=== PATIENT | female | born 1990 | race Caucasian/White ===

== ENCOUNTER 2019-07-18 17:52 | Emergency (ER) | payer OTHER, SELFPAY ==
[2019-07-18 18:01] VITALS: BP 113/76; PULSE 61; RESP 12; TEMP 36.5; O2SAT 100
--- NOTE | 2019-07-18 18:07 | DI.RAD.S_ITS ---
PROCEDURE: XR ANKLE RT MIN 3V INDICATIONS: rolled right ankle going down stairs TECHNIQUE: 3 views of the ankle were acquired. COMPARISON: None. FINDINGS: Bones: No fractures or dislocations. Ankle mortise is normally aligned. No suspicious bony lesions. Soft tissues: No tibiotalar joint effusion. Achilles tendon appears normal. IMPRESSION: No trauma. Dictated by: Alexi Pena M.D. on 07/18/2019 at 18:34 Approved by: Alexi Pena M.D. on 07/18/2019 at 18:34
[2019-07-18] MEDS: KETOROLAC 60 MG/2 ML VIAL IM (20:07)
[2019-07-18 20:41] VITALS: BP 112/70; PULSE 56; RESP 18; O2SAT 99
--- NOTE | 2019-07-18 20:41 | ED.LOWEXIN ---
HPI - Extremity Injury (Lower) <MARYAN Carrillo - Last Filed: 07/18/19 20:45> General Chief Complaint: Extremity Injury, Lower Stated Complaint: Slipped down stairs, hurt ankle Time Seen by Provider: 07/18/19 19:44 Source: patient and family Mode of arrival: Family Vehicle Limitations: no limitations History of Present Illness HPI Narrative: The patient is a 29-year-old female non smoker who denies medical history presents with a chief complaint of right ankle pain as she rolled it while going down 2 stairs. She denies any other injury. She has not taken anything for pain. She denies any previous substantial injuries to that ankle. She has not applied ice. Related Data Home Medications Medication Instructions Recorded Confirmed omega 9-rqo-qop-fish oil 1,000 mg cap PO cap 06/04/18 06/04/18 (120 mg-180 mg) capsule prenat.vits,forest,wux-dwpk-lrtwk 1 tab PO DAILY 06/04/18 06/04/18 Previous Rx's Medication Instructions Recorded fluconazole 150 mg tablet 150 mg PO ONCE #1 tab 06/04/18 ketorolac 10 mg PO TID PRN #15 tab 07/18/19 Allergies Allergy/AdvReac Type Severity Reaction Status Date / Time moxifloxacin [From Avelox] Allergy Severe Anaphylaxis Verified 07/18/19 18:07 Review of Systems <MARYAN Carrillo - Last Filed: 07/18/19 20:45> Review of Systems Narrative: GENERAL: Denies chills, fatigue, malaise, fever, sweats. HEENT: Denies sinus pain, ear pain, sore throat, difficulty swallowing, dizziness. RESPIRATORY: Denies dyspnea, cough, wheezing, hemoptysis, sputum. CARDIOVASCULAR: Denies chest pain, palpitations, orthopnea, edema, GASTROINTESTINAL: Denies nausea, vomiting, abdominal pain, diarrhea, constipation, melena. : Denies dysuria, frequency, incontinence, hematuria, urinary retention. MUSCULOSKELETAL: See HPI SKIN: Denies rash, skin lesions, or other NEUROLOGIC: Denies weakness, headache, numbness, change in speech, confusion, seizures, incoordination. PSYCHIATRIC: No concerning psychosocial issues. 12 point review of systems is negative except for those stated above Patient History <MARYAN Carrillo - Last Filed: 07/18/19 20:45> Social History Smoking Status: Never smoker alcohol intake frequency: a few times a week Substance Use Type: does not use Exam <BEVERLY Carrillo - Last Filed: 07/18/19 20:45> Narrative Exam Narrative: GENERAL: This is a well-nourished, well-developed patient, in no acute distress HEAD: Atraumatic. Normocephalic. No temporal or scalp tenderness. EYES: Pupils equal round and reactive. Extraocular motions intact. No scleral icterus. No injection or drainage. ENT: Nose without bleeding, purulent drainage or septal hematoma. Throat without erythema, tonsillar hypertrophy or exudate. Uvula midline. Airway patent. NECK: Trachea midline. No JVD or lymphadenopathy. Supple, nontender, no meningeal signs. CARDIOVASCULAR: Regular rate and rhythm RESPIRATORY: No cough. No increased respiratory effort. No accessory muscle use. EXTREMITIES: General pain to palpation right ankle. Able to flex and extend slightly, capillary refill less than 2 seconds all toes right foot. Positive pedal pulses right foot. Pain to palpation lateral malleolus. Swelling noted lateral malleolus. BACK: Nontender without deformity or crepitance. No flank tenderness. NEURO: AOx3. SKIN: No rash or erythema on visible skin. Ecchymosis noted to the lateral aspect of right ankle. Initial Vital Signs Initial Vital Signs: Vital Signs Temperature 97.7 F 07/18/19 18:01 Pulse Rate 61 07/18/19 18:01 Respiratory Rate 12 07/18/19 18:01 Blood Pressure 113/76 07/18/19 18:01 Pulse Oximetry 100 07/18/19 18:01 <Lai Christy DO - Last Filed: 07/18/19 21:44> Initial Vital Signs Initial Vital Signs: Vital Signs Temperature 97.7 F 07/18/19 18:01 Pulse Rate 61 07/18/19 18:01 Respiratory Rate 12 07/18/19 18:01 Blood Pressure 113/76 07/18/19 18:01 Pulse Oximetry 100 07/18/19 18:01 Procedures <BEVERLY Carrillo - Last Filed: 07/18/19 20:45> Orthopedic Splinting/Casting Injury #1: Side: right Lower Extremity Injury Location: ankle Lower Extremity Immobilizer: AirCast and Johnny wrap Other Orthopedic Equipment: crutches Post splinting neuro exam: intact Post splinting vascular exam: intact Placed by: Nursing Course <BEVERLY Carrillo - Last Filed: 07/18/19 20:45> Orders Ordered: ED Orders 07/18/19 18:07 XR ankle RT min 3V Stat Discontinued Medications Ketorolac Tromethamine (Toradol) 60 mg IM NOW ONE Stop: 07/18/19 20:00 Last Admin: 07/18/19 20:07 Dose: 60 mg Documented by: SONIA Vital Signs Vital signs: Vital Signs - 8 hr 07/18/19 18:01 07/18/19 20:41 Temperature 97.7 F Pulse Rate 61 56 L Respiratory Rate 12 18 Blood Pressure 113/76 112/70 Pulse Oximetry 100 99 <Lai Christy DO - Last Filed: 07/18/19 21:44> Orders Ordered: ED Orders 07/18/19 18:07 XR ankle RT min 3V Stat Discontinued Medications Ketorolac Tromethamine (Toradol) 60 mg IM NOW ONE Stop: 07/18/19 20:00 Last Admin: 07/18/19 20:07 Dose: 60 mg Documented by: SONIA Vital Signs Vital signs: Vital Signs - 8 hr 07/18/19 18:01 07/18/19 20:41 Temperature 97.7 F Pulse Rate 61 56 L Respiratory Rate 12 18 Blood Pressure 113/76 112/70 Pulse Oximetry 100 99 MDM - Extremity Injury (Lower) <BEVERLY Carrillo - Last Filed: 07/18/19 20:45> Imaging Data Ankle x-ray: Radiologist's impression: [address] [address] XRay Report Signed Patient: Madeleine Vaughan CMR#: [id number] : 1990Acct:[id number] Age/Sex: 29 / FDate of Service: 07/18/19 Loc: ED Accession Number: [id number] Procedure: XR ankle RT min 3V Ordering Provider: Alissa Santiago D.O. PROCEDURE: XR ANKLE RT MIN 3V INDICATIONS: rolled right ankle going down stairs TECHNIQUE: 3 views of the ankle were acquired. COMPARISON: None. FINDINGS: Bones: No fractures or dislocations. Ankle mortise is normally aligned. No suspicious bony lesions. Soft tissues: No tibiotalar joint effusion. Achilles tendon appears normal. IMPRESSION: No trauma. Dictated by: Alexi Pena M.D. on 07/18/2019 at 18:34 Approved by: Alexi Pena M.D. on 07/18/2019 at 18:34 MDM Narrative Medical decision making narrative: The patient is a 29-year-old female who presents for chief complaint of ankle pain after slipping down stairs earlier today. She has no fracture on x-ray, neurovascularly intact. She is placed in an air splint and given crutches given her pain level. She was given Toradol in the emergency department, I center prescription as she denies possibility of and states she is menstruating at this point time. I discussed not combining with any other anti-inflammatories. I encouraged her to follow up with primary care provider in the next few days. Patient has no questions or concerns upon discharge and states understanding of return precautions as well as follow-up care. Discharge Plan Departure Patient Disposition: Home Clinical Impression: Acute ankle pain Qualifiers: Laterality: right Qualified Code(s): M25.571 - Pain in right ankle and joints of right foot Discharge Date/Time: 07/18/19 20:42 Instructions: How to Use Crutches, DI for Ankle Sprain, How To Perform RICE (Rest, Ice, Compress, Elevate), DI for Ankle Pain Activity Restrictions/Additional Instructions: I have given you a prescription of Toradol. This is an NSAID. Do not combine it with other NSAIDs such as Aleve or ibuprofen. I suggest taking it with some food, as it can irritate your stomach. This prescription was sent to [facility]. As I discussed, your x-ray shows no acute fracture. This does not rule out a soft tissue injury such as a ligament or tendon injury. It is important that you follow up with primary care provider, especially if worsening or no improvement. There can be fractures that did not show up on initial x-ray. Please come back to the emergency department for any acute concerns. Please follow up with primary care provider. Prescriptions: New ketorolac 10 mg tablet 10 mg PO TID PRN (Reason: pain) Qty: 15 RF: 0 No Action prenat.vits,forest,gpk-uvbq-acqfq [ Vitamin] tablet 1 tab PO DAILY RF: 0 omega 1-wbg-hdw-fish oil [Fish Oil] 1,000 mg (120 mg-180 mg) capsule PO RF: 0 fluconazole 150 mg tablet 150 mg PO ONCE Qty: 1 RF: 0 Referrals: Ashley Eduardo ARNP [Primary Care Provider] - <Lai Christy DO - Last Filed: 07/18/19 21:44> Sign Out Provider Sign Out Attestation: Dr Christy Co-Sign Statement: I was available for consultation during this patient's emergency department visit. This chart is signed by myself for administrative purposes only. I did not have direct contact with this patient during this visit. They were seen independently by the APC.
== END 2019-07-18 20:42 | disposition home or self-care (01) ==
PROVIDERS: Emergency Provider Nurse Practitioner Family; PCP Nurse Practitioner Family
DX: M25.571 Pain in right ankle and joints of right foot (principal); W10.9XXA Fall (on) (from) unspecified stairs and steps, initial encounter
CPT/HCPCS: 73610; 96372; 99283; J1885

== ENCOUNTER 2023-05-22 14:34 | Emergency (ER) | payer OTHER, SELFPAY ==
[2023-05-22 14:50] VITALS: BP 130/75; PULSE 96; RESP 17; TEMP 37.2; O2SAT 98; BMI 22.4
--- NOTE | 2023-05-22 14:55 | DI.US.S_ITS ---
PROCEDURE: US OB <= 14 WEEKS FETUS INDICATIONS: PELVIC PAIN OUTSIDE/PRIOR DATING DATA: Last menstrual period (LMP): 04/02/2023. LMP-based estimated date of delivery (ADAN): 01/07/2024. First dating scan (date and location): 05/22/2023. Estimated date of delivery (ADAN) from first dating scan: 01/03/2024. The calculations are made using the working ADAN of 01/07/2024. TECHNIQUE: Real-time scanning was performed of the fetus and maternal pelvic organs, with image documentation. Endovaginal scanning was also performed to better visualize the fetus and maternal ovaries. COMPARISON: None. FINDINGS: Embryo: Crescent-rump length measures 1.4 cm corresponding with 7 week 5 day gestation. A normal yolk sac identified Heart rate: 169 beats per minute. Small perigestational bleed measures 1.1 x 1.3 x 0.3 cm Maternal organs: Left-sided corpus luteum cyst IMPRESSION: Single live intrauterine consistent with 7 week 5 day gestation. Small perigestational bleed 1.3 x 0.3 cm Approved by: Melecio Lawrence M.D. on 05/22/2023 at 16:03
[2023-05-22 15:47] LABS: Add Manual Diff / Slide Review NO; Basophils Absolute Auto 0 /uL (0-100); Basophils Percent Auto 0.4 % (0-2); Eosinophils Absolute Auto 0 /uL (0-450); Hematocrit 38.6 % (36-46); Hemoglobin 13.3 g/dL (12.0-16.0); Lymphocytes Absolute Auto 300 /uL (1100-4500); Lymphocytes Percent Auto 6.4 % (25-40); Mean Corpuscular HGB Conc 34.4 % (30-36); Mean Corpuscular Hemoglobin 31.6 PG (26-34); Mean Corpuscular Volume 91.9 fL (80-100); Monocytes Absolute Auto 500 /uL (0-900); Monocytes Percent Auto 11.3 % (3-14); Neutrophils Absolute Auto 3800 /uL (1500-7000); Neutrophils Percent Auto 81.9 % (50-75); Platelet Count 168 X10^3/uL (150-400); Red Blood Cell Count 4.21 X10^6/uL (4.0-5.2); Red Cell Distribution Width 12.5 % (11.6-14.8); White Blood Cell Count 4.7 X10^3/uL (4.5-11.0)
[2023-05-22 15:52] LABS: Alanine Aminotransferase 19 IU/L (<35); Albumin 4.4 g/dL (3.5-5.0); Albumin Globulin Ratio 1.5 (1.0-2.8); Alkaline Phosphatase 36 U/L (38-126); Aspartate Aminotransferase 18 IU/L (14-36); BUN Creatinine Ratio 8.7 (6-22); Bilirubin Total 0.3 mg/dL (0.2-1.3); Blood Urea Nitrogen 4 mg/dL (7-17); Calcium 9.3 mg/dL (8.4-10.2); Carbon Dioxide 22 mmol/L (22-32); Chloride 102 mmol/L (98-107); Estimated Glomerular Filt Rate > 60 mL/min (>60); Glucose 93 mg/dL (70-100); HEMOLYSIS < 15 (0-50); Potassium 3.7 mmol/L (3.4-5.1); Sodium 132 mmol/L (137-145); Total Protein 7.4 g/dL (6.3-8.2)
[2023-05-22 16:36] LABS: HCG Quantitative /Beta subunit 127180 mIU/mL
--- NOTE | 2023-05-22 18:36 | ED.ABDPAIN ---
HPI - Abdominal Pain <Tomi Dias PA-C - Last Filed: 05/22/23 18:45> General Chief Complaint: Abdominal Pain Stated Complaint: 7 weeks cramping pelvic pain Time Seen by Provider: 05/22/23 16:40 Source: patient Mode of arrival: Ambulatory History of Present Illness HPI narrative: 33-year-old female with no reported past medical history presents to the ED with left-sided abdominal pain for 2 days. Patient states she is 7 weeks , LMP 03/31/2023. Patient denies vaginal bleeding, fever, chills, chest pain, shortness of breath, dysuria, lightheadedness, dizziness, syncope. Patient states that she attended her brother's wedding over the weekend, got back yesterday and felt like she was coming down with something. She complains of a headache, sore throat, cough, fatigue. Patient states that her left-sided abdominal pain which is in the lower abdomen started yesterday and feels worse today. Patient has not yet seen an OBGYN, is scheduled to see 1 in a few weeks. This is patient's 1st . Related Data Home Medications Medication Instructions Recorded Confirmed prenat.vits,forest,tjk-whrq-upurz 1 tab PO DAILY 06/04/18 05/22/23 ( Vitamin tablet) Allergies Allergy/AdvReac Type Severity Reaction Status Date / Time moxifloxacin [From Avelox] Allergy Severe Anaphylaxis Verified 05/22/23 14:54 Review of Systems <Tomi Dias PA-C - Last Filed: 05/22/23 18:45> Review of Systems ROS Unobtainable: All systems reviewed & are unremarkable except as noted in HPI and below Constitutional Constitutional: Denies chills, Reports fatigue, Denies fever(s), Denies frequent falls, Reports headache(s), Denies lethargy and Denies weakness Eyes Eyes: Denies change in vision, Denies eye discharge, Denies irritation and Denies loss of vision ENT Ears, Nose, Mouth, and Throat: Denies change in voice, Denies dizziness, Reports headache(s), Denies neck pain, Denies sore throat and Denies throat swelling Cardiovascular Cardiovascular: Denies chest pain, Denies irregular heart rhythm, Denies lightheadedness, Denies palpitations, Denies dyspnea, Denies dyspnea on exertion and Denies orthopnea Respiratory Respiratory: Reports cough, Denies dyspnea, Denies dyspnea on exertion and Denies wheezing Gastrointestinal Gastrointestinal: Reports abdominal pain, Denies change in bowel habits, Denies diarrhea, Denies nausea and Denies vomiting Genitourinary Genitourinary: Denies hematuria, Denies flank pain, Denies urinary incontinence and Denies urinary urgency Musculoskeletal Musculoskeletal: Denies back pain, Denies muscle weakness, Denies neck pain, Denies numbness and Denies tingling Integumentary/Breasts Skin/Breast: Denies pruritus, Denies erythema, Denies rash and Denies wounds Neurologic Neurologic: Denies behavioral changes, Denies confusion, Denies dizziness, Denies frequent falls, Reports headache(s), Denies loss of vision, Denies numbness, Denies tingling and Denies weakness Psychiatric Psychiatric: Denies anxiety, Denies behavioral changes, Denies confusion, Denies depression, Denies homicidal ideation and Denies suicidal ideation Endocrine Endocrine: Reports fatigue, Denies flushing and Denies palpitations Hematologic/Lymphatic Hematologic/Lymphatic: Denies easy bruising Allergic/Immunologic Allergic/Immunologic: Denies urticaria, Denies throat swelling and Denies wheezing Patient History <Tomi Dias PA-C - Last Filed: 05/22/23 18:45> Social History Smoking Status: Never smoker Smoking Status: Never smoker alcohol intake frequency: a few times a week Substance Use Type: does not use Exam <Tomi Dias PA-C - Last Filed: 05/22/23 18:45> Narrative Exam Narrative: Const General:?cooperative, healthy appearing and comfortable [facility] Head:?normal to inspection Ears:?hearing grossly normal bilaterally Nose:?external nose normal Face and sinus:?normal facial exam and sinuses nontender Mouth:?oral mucosae normal Throat:?posterior oropharynx normal Eyes General:?appearance normal, both eyes and all related structures Neck Neck:?normal visual inspection and no lymphadenopathy noted Resp Effort & Inspection:?normal respiratory effort Auscultation:?clear to auscultation bilaterally Cardio Rate:?regular rate Rhythm:?regular rhythm GI Abdomen is soft, nontender to palpation. Mildly distended, consistent with the 7 week Neuro General:?patient alert, patient awake and patient oriented x3 Initial Vital Signs Initial Vital Signs: Vital Signs Temperature 98.9 F 05/22/23 14:50 Pulse Rate 96 H 05/22/23 14:50 Respiratory Rate 17 05/22/23 14:50 Blood Pressure 130/75 05/22/23 14:50 Pulse Oximetry 98 05/22/23 14:50 Oxygen Delivery Method Room Air 05/22/23 14:50 <Lai Christy DO - Last Filed: 05/28/23 07:11> Initial Vital Signs Initial Vital Signs: Vital Signs Temperature 98.9 F 05/22/23 14:50 Pulse Rate 96 H 05/22/23 14:50 Respiratory Rate 17 05/22/23 14:50 Blood Pressure 130/75 05/22/23 14:50 Pulse Oximetry 98 05/22/23 14:50 Oxygen Delivery Method Room Air 05/22/23 14:50 Course <TIFFANY Antonio Last Filed: 05/22/23 18:45> Orders Ordered: ED Orders 05/22/23 14:55 US OB <= 14 weeks fetus Stat 05/22/23 15:34 ABO RH Type Stat Complete Blood Count AUTO DIFF Stat Comprehensive Metabolic Panel Stat HCG Quantitative /Beta subunit Stat Vital Signs Vital signs: Vital Signs - 8 hr 05/22/23 14:50 Temperature 98.9 F Pulse Rate 96 H Respiratory Rate 17 Blood Pressure 130/75 Pulse Oximetry 98 Oxygen Delivery Method Room Air <DO Brent Stringer Last Filed: 05/28/23 07:11> Orders Ordered: ED Orders 05/22/23 14:55 US OB <= 14 weeks fetus Stat 05/22/23 15:34 ABO RH Type Stat Complete Blood Count AUTO DIFF Stat Comprehensive Metabolic Panel Stat HCG Quantitative /Beta subunit Stat Vital Signs Vital signs: Vital Signs - 8 hr 05/22/23 14:50 Temperature 98.9 F Pulse Rate 96 H Respiratory Rate 17 Blood Pressure 130/75 Pulse Oximetry 98 Oxygen Delivery Method Room Air MDM - Abdominal Pain <TIFFANY Antonio Last Filed: 05/22/23 18:45> Lab Data 05/22/23 15:34 05/22/23 15:34 Labs: Lab Results 05/22/23 05/22/23 05/22/23 Range/Units 15:34 15:34 15:34 WBC 4.7 (4.5-11.0) X10^3/uL RBC 4.21 (4.0-5.2) X10^6/uL Hgb 13.3 (12.0-16.0) g/dL Hct 38.6 (36-46) % MCV 91.9 (80-100) fL MCH 31.6 (26-34) PG MCHC 34.4 (30-36) % RDW 12.5 (11.6-14.8) % Plt Count 168 (150-400) X10^3/uL Neut % (Auto) 81.9 H (50-75) % Lymph % (Auto) 6.4 L (25-40) % [place] % (Auto) 11.3 (3-14) % Eos % (Auto) 0.0 L (2-4) % Baso % (Auto) 0.4 (0-2) % Neut # (Auto) 3800 (9547-8732) /uL Lymph # (Auto) 300 L (7505-5338) /uL [place] # (Auto) 500 (0-900) /uL Eos # (Auto) 0 (0-450) /uL Baso # (Auto) 0 (0-100) /uL Sodium 132 L (137-145) mmol/L Potassium 3.7 (3.4-5.1) mmol/L Chloride 102 (98-107) mmol/L Carbon Dioxide 22 (22-32) mmol/L BUN 4 L (7-17) mg/dL Creatinine 0.46 L (0.52-1.04) mg/dL Estimated GFR > 60 (>60) mL/min BUN/Creatinine Ratio 8.7 (6-22) Glucose 93 (70-100) mg/dL Calcium 9.3 (8.4-10.2) mg/dL Total Bilirubin 0.3 (0.2-1.3) mg/dL AST 18 (14-36) IU/L ALT 19 (<35) IU/L Alkaline Phosphatase 36 L (38-126) U/L Total Protein 7.4 (6.3-8.2) g/dL Albumin 4.4 (3.5-5.0) g/dL Globulin 3.0 (1.7-4.1) g/dL Albumin/Globulin Ratio 1.5 (1.0-2.8) HCG, Quant 491234 mIU/mL Blood Type A Positive Point of care testing: Urine Dip Bedside Urine Glucose Negative Bedside Urine Bilirubin - Negative Bedside Urine Ketone +/- 5 Urine Specific [place] 1.010 Bedside Urine Occult Blood - Negative Bedside Urine pH 7.5 Bedside Urine Protein +/- 15 Bedside Urine Urobilinogen - Negative Bedside Urine Nitrite - Negative Bedside Urine Leukocytes - Negative Esterase MDM Narrative Medical decision making narrative: 33-year-old female with no reported past medical history presents to the ED with left-sided abdominal pain for 2 days. Concern for threatened miscarriage versus round ligament pain versus other intra-abdominal pathology versus ectopic versus other. Obtained labs, hCG, pelvic ultrasound, type and screen. Patient is blood type A positive. HCG is [id number], which is consistent with a 7 week . Pelvic ultrasound shows a single live intrauterine gestation dated at approximately 7 weeks and 5 days. There is also a small perigestational bleed measuring 1.1 by 1.3 x 0.3 cm. Discussed findings with patient. Discussed that her symptoms could be from ligament pain versus a threatened miscarriage. Explained to patient that perigestational bleeds can sometimes lead to miscarriages but not always. Recommend follow-up with OBGYN as soon as possible to continue to monitor the . Also discussed the possibility that patient has a viral URI that is causing her symptoms such as cough and headache. Recommend Tylenol for symptoms. Recommend plenty of hydration. ED return precautions were discussed with patient. Patient verbalized understanding. Medical records reviewed: Yes <Lai Christy, - Last Filed: 05/28/23 07:11> Lab Data Labs: Lab Results 05/22/23 05/22/23 05/22/23 Range/Units 15:34 15:34 15:34 WBC 4.7 (4.5-11.0) X10^3/uL RBC 4.21 (4.0-5.2) X10^6/uL Hgb 13.3 (12.0-16.0) g/dL Hct 38.6 (36-46) % MCV 91.9 (80-100) fL MCH 31.6 (26-34) PG MCHC 34.4 (30-36) % RDW 12.5 (11.6-14.8) % Plt Count 168 (150-400) X10^3/uL Neut % (Auto) 81.9 H (50-75) % Lymph % (Auto) 6.4 L (25-40) % [place] % (Auto) 11.3 (3-14) % Eos % (Auto) 0.0 L (2-4) % Baso % (Auto) 0.4 (0-2) % Neut # (Auto) 3800 (3630-3062) /uL Lymph # (Auto) 300 L (9401-7536) /uL [place] # (Auto) 500 (0-900) /uL Eos # (Auto) 0 (0-450) /uL Baso # (Auto) 0 (0-100) /uL Sodium 132 L (137-145) mmol/L Potassium 3.7 (3.4-5.1) mmol/L Chloride 102 (98-107) mmol/L Carbon Dioxide 22 (22-32) mmol/L BUN 4 L (7-17) mg/dL Creatinine 0.46 L (0.52-1.04) mg/dL Estimated GFR > 60 (>60) mL/min BUN/Creatinine Ratio 8.7 (6-22) Glucose 93 (70-100) mg/dL Calcium 9.3 (8.4-10.2) mg/dL Total Bilirubin 0.3 (0.2-1.3) mg/dL AST 18 (14-36) IU/L ALT 19 (<35) IU/L Alkaline Phosphatase 36 L (38-126) U/L Total Protein 7.4 (6.3-8.2) g/dL Albumin 4.4 (3.5-5.0) g/dL Globulin 3.0 (1.7-4.1) g/dL Albumin/Globulin Ratio 1.5 (1.0-2.8) HCG, Quant 995242 mIU/mL Blood Type A Positive Point of care testing: Urine Dip Bedside Urine Glucose Negative Bedside Urine Bilirubin - Negative Bedside Urine Ketone +/- 5 Urine Specific [place] 1.010 Bedside Urine Occult Blood - Negative Bedside Urine pH 7.5 Bedside Urine Protein +/- 15 Bedside Urine Urobilinogen - Negative Bedside Urine Nitrite - Negative Bedside Urine Leukocytes - Negative Esterase Discharge Plan Departure Patient Disposition: Home Clinical Impression: Abdominal pain Instructions: DI for Abdominal Pain-Adult Activity Restrictions/Additional Instructions: You were evaluated in the ED today for abdominal pain during . Your ultrasound does show a single live intrauterine consistent with 7 week 5 day gestation. There is a small perigestational bleed. Your hCG today was consistent with a 7 week and is at [id number]. Please follow-up with your OBGYN for continued monitoring of the . It also appears you might have a viral infection that is causing you to feel a little under the weather with a cough and headache. You may take Tylenol for it. Please return to the ED if you have worsening symptoms, vaginal bleeding. Prescriptions: No Action prenat.vits,forest,tyl-wwur-sqthq [ Vitamin] tablet 1 tab PO DAILY Referrals: Ashley Naylor ARNP [Primary Care Provider] - Stand Alone Forms: Patient Portal/API <Lai Christy DO - Last Filed: 05/28/23 07:11> Cosign ED Attending Cosignature Attestation: Dr Christy Co-Sign Statement: I was available for consultation during this patient's emergency department visit. This chart is signed by myself for administrative purposes only. I did not have direct contact with this patient during this visit. They were seen independently by the APC.
== END 2023-05-22 17:34 | disposition home or self-care (01) ==
PROVIDERS: Emergency Medicine; Emergency Provider Student in an Organized Health Care Education/Training Program; PCP Nurse Practitioner Family
DX: O26.891 Other specified pregnancy related conditions, first trimester (principal); R10.9 Unspecified abdominal pain; Z3A.01 Less than 8 weeks gestation of pregnancy
CPT/HCPCS: 76801; 76817; 80053; 81003; 84702; 85025; 86900; 86901; 99283

== ENCOUNTER → 2023-06-11 11:42 | Outpatient (CLI) | payer OTHER, SELFPAY ==
[2023-06-11 12:14] LABS: Miscellaneous to LabCorp NATERA
[2023-06-11 12:47] LABS: Add Manual Diff / Slide Review NO; Basophils Absolute Auto 0 /uL (0-100); Basophils Percent Auto 0.4 % (0-2); Eosinophils Absolute Auto 0 /uL (0-450); Eosinophils Percent Auto 0.4 % (2-4); Hematocrit 37.2 % (36-46); Hemoglobin 12.9 g/dL (12.0-16.0); Lymphocytes Absolute Auto 1400 /uL (1100-4500); Lymphocytes Percent Auto 19.9 % (25-40); Mean Corpuscular HGB Conc 34.8 % (30-36); Mean Corpuscular Hemoglobin 31.5 PG (26-34); Mean Corpuscular Volume 90.6 fL (80-100); Monocytes Absolute Auto 500 /uL (0-900); Monocytes Percent Auto 6.9 % (3-14); Neutrophils Absolute Auto 5000 /uL (1500-7000); Neutrophils Percent Auto 72.4 % (50-75); Platelet Count 223 X10^3/uL (150-400); Red Blood Cell Count 4.11 X10^6/uL (4.0-5.2); Red Cell Distribution Width 12.4 % (11.6-14.8); White Blood Cell Count 6.9 X10^3/uL (4.5-11.0)
[2023-06-11 15:21] LABS: Hepatitis B Surface Antigen NEGATIVE s/c (NEGATIVE); Rubella Antibody IgG 70.3 IU/mL (>15)
[2023-06-11 15:36] LABS: HIV 1 & 2 Ab/Ag 4th Gen Combo NEGATIVE (NEGATIVE); Hep C Virus Ab w/Reflex Quant NEGATIVE s/c (NEGATIVE)
[2023-06-12 08:26] LABS: Varicella IgG Antibody 2098 index (Immune >165)
[2023-06-13 03:15] LABS: RPR Screen Non Reactive (Non Reactive)
== END ==
PROVIDERS: Specialist; Referring Provider Obstetrics & Gynecology; Visit Provider Obstetrics & Gynecology
DX: O09.511 Supervision of elderly primigravida, first trimester (principal); Z3A.10 10 weeks gestation of pregnancy
CPT/HCPCS: 36415; 80055; 86787; 86803; 86850; 86900; 86901; 87086; 87389

== ENCOUNTER → 2023-08-10 11:43 | Outpatient (CLI) | payer OTHER, SELFPAY ==
[2023-08-11 14:44] LABS: Candida species Negative (Negative); Gardnerella vaginalis Negative (Negative); Trichomoas vaginalis Negative (Negative)
== END ==
PROVIDERS: PCP Family Medicine; Visit Provider Student in an Organized Health Care Education/Training Program
DX: N89.8 Other specified noninflammatory disorders of vagina (principal)
CPT/HCPCS: 87480; 87510; 87660

== ENCOUNTER → 2023-08-10 11:44 | Outpatient (CLI) | payer OTHER, SELFPAY ==
[2023-08-13 14:59] LABS: AFP Value 53.8 ng/mL (.); Gest Age on Col Date 18.6 weeks (.); Insulin Dep Diabetes No (.); OSBR Risk 1IN 6916 (.); Results Report (.); Test Results *Screen Negative* (.)
== END ==
PROVIDERS: PCP Family Medicine; Referring Provider Student in an Organized Health Care Education/Training Program; Visit Provider Student in an Organized Health Care Education/Training Program
DX: O99.891 Other specified diseases and conditions complicating pregnancy (principal); N89.8 Other specified noninflammatory disorders of vagina; Z3A.18 18 weeks gestation of pregnancy
CPT/HCPCS: 36415; 82105; 87480; 87510; 87660

== ENCOUNTER → 2023-08-22 12:17 | Outpatient (CLI) | payer OTHER, SELFPAY ==
--- NOTE | 2023-08-22 12:18 | DI.US.S_ITS ---
PROCEDURE: US OB >= 14 WEEKS FETUS INDICATIONS: 20 week anatomy scan OUTSIDE/PRIOR DATING DATA: Last menstrual period (LMP): 04/02/2023. LMP-based estimated date of delivery (ADAN): 01/07/2024. First dating scan (date and location): 05/22/2023. Estimated date of delivery (ADAN) from first dating scan: 01/03/2024. The calculations are made using the working ADAN of 01/07/2024. TECHNIQUE: Real-time scanning was performed of the fetus, with image documentation and biometric measurements. Endovaginal scanning: None COMPARISON: [facility], US, OB >= 14 WEEKS FETUS, 07/10/2023, 12:08. FINDINGS: General: A single living intrauterine gestation is present. Presentation: Vertex. Placenta: Placental position is posterior , without previa. Amniotic fluid index: 17.1 cm, normal range is 5-24 cm. Single deepest vertical pocket is 5.6 cm. heart rate: 152 beats per minute. Maternal cervical canal: 3.3 cm long. Normal lower limit is 2.5 cm. biometrics: Biparietal diameter: 5.1 cm, 21 week 3 day Head circumference: 18.3 cm, 20 week 5 day Abdominal circumference: 15.3 cm, 20 week 4 day Femur length: 3.4 cm, 20 week 5 day Clinically estimated gestational age: 20 week 2 day Composite gestational age from present scan: 20 week 6 day Estimated weight and percentile: 3 no 69 g, 67 percentile Anatomic survey: Neuro: Ventricles are non-dilated at less than 10 mm. Cisterna magna is normal at 3-11 mm. Cerebellum is normal in size and morphology. Nuchal skin fold: Normal at less than 6 mm between 14-21 weeks gestational age. Face: Nose and lips, facial profile are normal. Spine: No evidence for spina bifida. Heart: 4-chambered heart is present, with normal ventricular outflow tracts. Diaphragm: Diaphragm is intact. Stomach: Left-sided stomach is present. Kidneys: No hydronephrosis. Normal is less than 5 mm in 2nd trimester, less than 7 mm in 3rd trimester. Cord: 3-vessel cord has orthotopic insertion. Bladder: Normal in size. Extremities: All 4 extremities identified. IMPRESSION: Single live intrauterine consistent with 20 week 6 day gestation by current ultrasound. Normal anatomic survey Approved by: Melecio Lawrence M.D. on 08/22/2023 at 18:20
== END ==
PROVIDERS: PCP Family Medicine; Referring Provider Obstetrics & Gynecology; Visit Provider Obstetrics & Gynecology
DX: Z34.92 Encounter for supervision of normal pregnancy, unspecified, second trimester (principal); Z3A.20 20 weeks gestation of pregnancy
CPT/HCPCS: 76811

== ENCOUNTER → 2023-10-04 09:03 | Outpatient (CLI) | payer OTHER, SELFPAY ==
[2023-10-04 11:03] LABS: Hematocrit 34.5 % (36-46); Hemoglobin 11.9 g/dL (12.0-16.0)
[2023-10-04 11:28] LABS: GTT (PREG) 1 Hour PP 50gm Dose 87 mg/dL (76-139)
== END ==
PROVIDERS: PCP Family Medicine; Referring Provider Specialist; Visit Provider Specialist
DX: Z34.82 Encounter for supervision of other normal pregnancy, second trimester (principal); Z3A.26 26 weeks gestation of pregnancy
CPT/HCPCS: 36415; 82950; 85014; 85018

== ENCOUNTER → 2023-12-14 15:52 | Outpatient (CLI) | payer OTHER, SELFPAY ==
[2023-12-15 13:19] LABS: Strep Grp B PCR POS for Grp B Strep
== END ==
PROVIDERS: PCP Family Medicine; Visit Provider Specialist
DX: Z34.03 Encounter for supervision of normal first pregnancy, third trimester (principal); Z3A.36 36 weeks gestation of pregnancy
CPT/HCPCS: 87653

== ENCOUNTER 2024-01-09 00:25 | Outpatient (CLI) | payer OTHER, SELFPAY ==
[2024-01-09] MEDS: hydrOXYzine 50 MG/ML INJ IM (01:46)
[2024-01-09] MEDS: MORPHINE 10 MG/ML INJ IM (01:46)
== END 2024-01-09 01:55 | disposition home or self-care (01) ==
LOC: LABOR 00:27 → OB 01-14 07:49
PROVIDERS: PCP Family Medicine; Referring Provider Student in an Organized Health Care Education/Training Program; Visit Provider Student in an Organized Health Care Education/Training Program
DX: O47.1 False labor at or after 37 completed weeks of gestation (principal); O48.0 Post-term pregnancy; Z3A.40 40 weeks gestation of pregnancy
CPT/HCPCS: 59025; 96372; G0378; G0379; J2270; J3410

== ENCOUNTER 2024-01-09 09:48 | Inpatient (IN) | payer OTHER, SELFPAY ==
[2024-01-09] MEDS: LACTATED RINGERS 1,000 ML 100 ML IV ×2 (11:08→13:24)
[2024-01-09] MEDS: hydrOXYzine 50 MG/ML INJ 25 MG IM (11:15)
[2024-01-09] MEDS: MORPHINE 4 MG/ML INJ IV (11:15)
[2024-01-09 12:08] VITALS: BP 129/83
[2024-01-09 12:08] LABS: Add Manual Diff / Slide Review NO; Basophils Absolute Auto 100 /uL (0-100); Basophils Percent Auto 0.5 % (0-2); Eosinophils Absolute Auto 0 /uL (0-450); Eosinophils Percent Auto 0.1 % (2-4); Hematocrit 38.7 % (36-46); Lymphocytes Absolute Auto 1200 /uL (1100-4500); Lymphocytes Percent Auto 10.1 % (25-40); Mean Corpuscular HGB Conc 33.6 % (30-36); Mean Corpuscular Volume 92.3 fL (80-100); Monocytes Absolute Auto 500 /uL (0-900); Monocytes Percent Auto 4.6 % (3-14); Neutrophils Absolute Auto 10100 /uL (1500-7000); Neutrophils Percent Auto 84.7 % (50-75); Platelet Count 143 X10^3/uL (150-400); Red Blood Cell Count 4.19 X10^6/uL (4.0-5.2); Red Cell Distribution Width 13.8 % (11.6-14.8); White Blood Cell Count 11.9 X10^3/uL (4.5-11.0)
--- NOTE | 2024-01-09 13:14 | P.HPOB_ITS ---
OB HPI Date/Time Date of admission: 01/09/24 Date Patient Seen: 01/09/24 Time Patient Seen: 12:15 History of Present Condition Chief complaint: obs of labor ADAN Calculator 2 Estimated Delivery Date Method Current WG Current Estimate 01/07/24 LMP (Certain) 40w 2d Other Estimates 01/03/24 Ultrasound #1 40w 6d 01/04/24 Ultrasound #2 40w 5d Estimated Gestational Age (weeks): 40+2 : 1 Para: 0 care: good care, initiated at week # (9), number of visits (13) and pounds weight gain (26) Dating criteria OB: LMP confirmed by 1st trimester US Ultrasounds: normal 1st trimester US and normal mid trimester US Obstetrical complications: none Medical complications OB: none Indications Indication for induction OB: other (Prodromal labor) Preadmission Labs Last OB Lab Results: 2 Blood Type A Positive 01/09/24 11:05 Antibody Screen Negative 01/09/24 11:05 Hematocrit 38.7 % (36-46) 01/09/24 11:05 Hemoglobin 13.0 g/dL (12.0-16.0) 01/09/24 11:05 Hepatitis B Surface Antigen Negative s/c (NEGATIVE) 06/11/23 12 :13 Hepatitis C Antibody Negative s/c (NEGATIVE) 06/11/23 12:13 Rubella Antibody 70.3 IU/mL (>15) 06/11/23 12:13 Varicella-Zoster IgG Antibody 2098 index (Immune >165) 06/11/23 12:13 Glucose 1 Hour 87 mg/dL (76-139) 10/04/23 09:09 Group B Streptococcus (PCR) Pos for grp b strep H 12/14/23 15:5 2 -: Chlamydia screen: negative, Gonorrhea screen: negative and Urine: negative -: PAP smear: Normal Genetic Screens: Cell-free DNA: Normal (normal male) and Alpha-fetoprotein: Normal External Labs -: Urine: negative Evaluation Evaluation Baseline heart rate: 135 Variability: Moderate (11-25) monitor accelerations: Present Monitor Decelerations: Absent Contraction Frequency (minutes): 5 Uterine Contraction Intensity: Moderate Status: Category l Dilation (cm): 0 Effacement (%): 95 Dilation: Closed Effacement: >/=80% station: 0 Position of cervix: mid Consistency: soft [place] score: 8 [facility] Medical History (Updated 12/21/23 @ 16:01 by Shirley Medeiros MD) COVID-19 affecting in first trimester (~04/2023) Painful menstrual periods Seasonal allergies Migraine Chicken pox (~1991) Measles (~1989) Surgical History (Updated 06/16/23 @ 21:24 by Alicia Chavez) Anesthesia History of tonsillectomy (~1991) H/O endoscopy (~2006) History of removal of skin mole Percy teeth extracted (~2007) Family History (Updated 06/16/23 @ 21:27 by Alicia Chavez) Granddaughter Leukemia Grandfather Prostate cancer Grandfather Pneumonia Grandmother Cancer Grandmother History of heart disease Social History marital status: number of children: 0 household members: spouse lives independently: Yes caregiver/support person: No housing: house pets and animals: No education level: college (bachelor's degree) occupational status: employed (works from home) current occupational exposures/hazards: No special rosio needs: No travel history: recent ([place], [place], [place], [place]) seatbelt use: always helmet use: Yes water heater temp set < 120 deg: Yes working smoke detector in home: Yes fire extinguisher in home: Yes carbon monox detector in home: Yes firearms in home: No do you feel safe at home: Yes Smoking Status: Never smoker second hand exposure: No alcohol intake: former (1-2/week when not ) substance use type: marijuana (occasional edibles, not while /) during the past year weight has: remained stable well-balanced diet: daily or most days daily servings fruits/ve or more times/day caffeine: Yes (1 cup coffee in AM) Type(s) of exercise: walking, bicycling, weight lifting and running frequency: daily duration: 30-45 minutes/day Meds Home Medications and Allergies Home Medications Medication Instructions Recorded Confirmed Type prenat.vits,forest,rtp-pjxh-rgobf 1 tab PO DAILY 06/04/18 01/09/24 History ( Vitamin tablet) magnesium 250 mg tablet 250 mg PO DAILY PRN insomnia 05/28/23 01/09/24 History omega 6-gfd-hzr-fish oil 1,600 5 ml PO DAILY 05/28/23 01/09/24 History mg-500 mg-800 mg/5 mL oral liquid (Fish Oil) ondansetron 4 mg disintegrating 4 mg PO Q6H PRN nausea and 05/31/23 01/07/24 Rx tablet vomiting #20 tabs doxylamine succinate 25 mg tablet 25 mg PO DAILY Pregnacy nausea 06/19/23 01/09/24 History (Unisom (doxylamine)) aspirin 81 mg tablet,delayed 81 mg PO DAILY 09/10/23 01/09/24 History release RSVPreF3 antigen-AS01E 0.5 ml IM ONCE #1 ea 11/01/23 01/07/24 Rx adjuvant(PF) 120 mcg/0.5 mL IM suspension, kit Allergies Allergy/AdvReac Type Severity Reaction Status Date / Time moxifloxacin [From Avelox] Allergy Severe Anaphylaxis Verified 01/09/24 11:05 OB Exam Narrative Exam Narrative: Generally: Patient very uncomfortable with contractions, breathing through them. Having some shaking. Lungs: Clear to auscultation bilaterally Cardiovascular: Regular rate and rhythm Fundal height: 40 cm Estimated weight: 7-1/2 lb Extremities: Trace edema Objective Labs 01/09/24 11:05 Labs: Laboratory Results - last 24 hr 01/09/24 11:05 WBC 11.9 H RBC 4.19 Hgb 13.0 Hct 38.7 MCV 92.3 MCH 31.0 MCHC 33.6 RDW 13.8 Plt Count 143 L Neut % (Auto) 84.7 H Lymph % (Auto) 10.1 L [place] % (Auto) 4.6 Eos % (Auto) 0.1 L Baso % (Auto) 0.5 Neut # (Auto) 77129 H Lymph # (Auto) 1200 [place] # (Auto) 500 Eos # (Auto) 0 Baso # (Auto) 100 Blood Type A Positive Antibody Screen Negative Assessment and Plan Assessment and Plan Assessment and Plan narrative: Assessment: 33-year-old 1 para 0 at 40-,2/7 weeks gestation in prodromal labor new line not tolerating contractions well IV morphine has had no effect GBS positive Plan: Epidural GBS prophylaxis Possible placement of Damico once comfortable Expected management to spontaneous vaginal delivery Time Spent with Patient Total time spent with greater than 50% in coordination of care (as documented) at patient's floor/unit and/or counseling patient:: 15-24 minutes
[2024-01-09] MEDS: AMPICILLIN 2,000 MG in SODIUM CHLORIDE 0.9% 100 ML 200 MG IV (13:25)
--- NOTE | 2024-01-09 14:24 | PM.AN.REGBLK ---
Regional Block Pre-procedure Labs: Hct 38.7 % (36-46) 01/09/24 11:05 Plt Count 143 X10^3/uL (150-400) L 01/09/24 11:05 Medications: Current Medications Generic Name Dose Route Start Last Admin Trade Name Ama PRN Reason Stop Dose Admin Carboprost Tromethamine 250 mcg 01/09/24 10:33 Carboprost 250 Mcg/Ml Ampul IM Q90M PRN Bleeding Hydroxyzine HCl 25 mg 01/09/24 10:33 01/09/24 11:15 Hydroxyzine 50 Mg/Ml Inj IM 25 mg Q4HR PRN Administration Nausea Oxytocin/Lactated Ringer's 30 unit in 500 mls @ 200 mls/hr 01/09/24 10:33 Oxytocin Premix IV CONT PRN Bleeding Protocol Tranexamic Acid 1,000 mg/ 100 mls @ 200 mls/hr 01/09/24 10:33 Sodium Chloride IV NOW PRN Bleeding Lactated Ringer's 1,000 mls @ 100 mls/hr 01/09/24 10:45 01/09/24 13:24 Lactated Ringers IV 100 mls/hr CONT DIGNA Administration Ampicillin Sodium 1,000 mg/ 100 mls @ 200 mls/hr 01/09/24 16:45 Sodium Chloride IV Q4H DIGNA Lidocaine HCl 20 ml 01/09/24 10:33 Lidocaine 1% 20 Ml INJ INTRA-OP PRN Post Delivery Methylergonovine Maleate 0.2 mg 01/09/24 10:33 Methylergonovine 0.2 Mg Tablet PO Q6HR PRN Heavy Bleeding Methylergonovine Maleate 0.2 mg 01/09/24 10:33 Methylergonovine 0.2 Mg/Ml Vial IM NOW PRN Bleeding Misoprostol 800 mcg 01/09/24 10:33 Misoprostol 200 Mcg Tablet ND NOW PRN Bleeding Misoprostol 400 mcg 01/09/24 10:33 Misoprostol 200 Mcg Tablet SL NOW PRN Bleeding Morphine Sulfate 4 mg 01/09/24 10:33 01/09/24 11:15 Morphine 4 Mg/Ml Inj IV 4 mg Q4HR PRN Administration Pain, Severe (7-10) Naloxone HCl 0.2 mg 01/09/24 10:33 Naloxone 0.4 Mg/Ml Vial IV Q2MIN PRN Opiate Reversal Oxytocin 10 unit 01/09/24 10:33 Oxytocin 10 Unit/Ml Vial IM NOW PRN Bleeding Sodium Chloride 10 ml 01/09/24 21:00 Sodium Chloride 0.9% Flush IV BID DIGNA Sodium Chloride 10 ml 01/09/24 10:33 Sodium Chloride 0.9% Flush IV PRN PRN Flush Allergies: Allergies Allergy/AdvReac Type Severity Reaction Status Date / Time moxifloxacin [From Avelox] Allergy Severe Anaphylaxis Verified 01/09/24 11:05 Procedure Insertion date: 01/09/24 Insertion time: 12:56 Prep/Local: betadine x3 and 1% lidocaine Interspace: l3 l4 Patient position: sitting Needle: 17 gauge Tuohy Loss of resistance with: saline GIANLUCA at (cm): 6 Catheter placed at SKIN (cm): 14 Initial Medications TEST DOSE time: 13:00 BOLUS DOSE time: 13:09 BOLUS DOSE (mL): 5 BOLUS DOSE med: 0.125% bupivacaine with fentanyl 10 mcg/mL Infusion INFUSION: with fentanyl 2 mcg/mL and 0.0625% bupivacaine Initial rate (mL/hr): 10 Post-procedure Anesthesia date START: 01/09/24 Anesthesia time START: 12:50 Anesthesia date END: 01/09/24 Anesthesia time END: 15:20
[2024-01-09 14:27] LABS: Appearance Urine UA CLEAR; Bilirubin Urine UA NEGATIVE (NEGATIVE); Color Urine UA YELLOW; Glucose Urine UA NEGATIVE (Negative); Ketones Urine UA NEGATIVE (NEGATIVE); Leukocyte Esterase Urine UA NEGATIVE (NEGATIVE); Nitrite Urine UA NEGATIVE (Negative); Occult Blood Urine UA NEGATIVE (Negative); Protein Urine UA NEGATIVE (Negative); Specific Gravity Urine UA <=1.005 (1.000-1.035); Urobilinogen Urine UA 0.2 E.U./dL (0.2)
[2024-01-09 14:28] LABS: Urine Volume 10mL (spun)
[2024-01-09 14:30] LABS: Bacteria Urine None Seen; Culture Indicated Urine Cult Not Indicated; RBC Urine None Seen (0-5/HPF); Squamous Epithelial Cell Urine None Seen (0-5/HPF); WBC Urine None Seen (0-5/HPF)
--- NOTE | 2024-01-09 15:29 | PM.AN.REGBLK ---
Regional Block Pre-procedure Procedure: Continuous Lumbar Epidural for L&D Attending OB provider: Tierra Ross PMH/ROS narrative: Epidural placed earlier in the day. Patient now has pain with contractions. Nurse reports blood under dressing and leaking. Exam narrative: Blood filled dressing. When removed and inspected, catheter is at 2cm and leaking. Completed Removal and discussed replacement with the patient. She agrees to proceed. ASA Class: II Labs: Hct 38.7 % (36-46) 01/09/24 11:05 Plt Count 143 X10^3/uL (150-400) L 01/09/24 11:05 Medications: Current Medications Generic Name Dose Route Start Last Admin Trade Name Freq PRN Reason Stop Dose Admin Carboprost Tromethamine 250 mcg 01/09/24 10:33 Carboprost 250 Mcg/Ml Ampul IM Q90M PRN Bleeding Diphenhydramine HCl 25 mg 01/09/24 14:23 Diphenhydramine 50 Mg/Ml Vial IV Q10M PRN Pruritis Ephedrine Sulfate 10 mg 01/09/24 14:23 Ephedrine 50 Mg/Ml Vial IV Q5M PRN Blood pressure decrease more than 20% of baseline. Hydroxyzine HCl 25 mg 01/09/24 10:33 01/09/24 11:15 Hydroxyzine 50 Mg/Ml Inj IM 25 mg Q4HR PRN Administration Nausea Oxytocin/Lactated Ringer's 30 unit in 500 mls @ 200 mls/hr 01/09/24 10:33 Oxytocin Premix IV CONT PRN Bleeding Protocol Tranexamic Acid 1,000 mg/ 100 mls @ 200 mls/hr 01/09/24 10:33 Sodium Chloride IV NOW PRN Bleeding Lactated Ringer's 1,000 mls @ 100 mls/hr 01/09/24 10:45 01/09/24 13:24 Lactated Ringers IV 100 mls/hr CONT DIGNA Administration Ampicillin Sodium 1,000 mg/ 100 mls @ 200 mls/hr 01/09/24 16:45 Sodium Chloride IV Q4H DIGNA FENT 2MCG/ML BUPIV 0.125% EPI 200 mcg in 100 mls @ 10 mls/hr 01/09/24 14:30 Fentanyl/Bupiv/Ns 2mcg/Ml - 0.125% EPIDURAL CONT DIGNA Lidocaine HCl 20 ml 01/09/24 10:33 Lidocaine 1% 20 Ml INJ INTRA-OP PRN Post Delivery Methylergonovine Maleate 0.2 mg 01/09/24 10:33 Methylergonovine 0.2 Mg Tablet PO Q6HR PRN Heavy Bleeding Methylergonovine Maleate 0.2 mg 01/09/24 10:33 Methylergonovine 0.2 Mg/Ml Vial IM NOW PRN Bleeding Misoprostol 800 mcg 01/09/24 10:33 Misoprostol 200 Mcg Tablet OR NOW PRN Bleeding Misoprostol 400 mcg 01/09/24 10:33 Misoprostol 200 Mcg Tablet SL NOW PRN Bleeding Morphine Sulfate 4 mg 01/09/24 10:33 01/09/24 11:15 Morphine 4 Mg/Ml Inj IV 4 mg Q4HR PRN Administration Pain, Severe (7-10) Nalbuphine HCl 2.5 mg 01/09/24 14:23 Nalbuphine 20 Mg/Ml Ampul IV Q10M PRN Pruritis Naloxone HCl 0.2 mg 01/09/24 10:33 Naloxone 0.4 Mg/Ml Vial IV Q2MIN PRN Opiate Reversal Oxytocin 10 unit 01/09/24 10:33 Oxytocin 10 Unit/Ml Vial IM NOW PRN Bleeding Sodium Chloride 10 ml 01/09/24 21:00 Sodium Chloride 0.9% Flush IV BID DIGNA Sodium Chloride 10 ml 01/09/24 10:33 Sodium Chloride 0.9% Flush IV PRN PRN Flush Sodium Chloride 10 ml 01/09/24 21:00 Sodium Chloride 0.9% Flush IV BID DIGNA Sodium Chloride 10 ml 01/09/24 14:23 Sodium Chloride 0.9% Flush IV PRN PRN Flush Allergies: Allergies Allergy/AdvReac Type Severity Reaction Status Date / Time moxifloxacin [From Avelox] Allergy Severe Anaphylaxis Verified 01/09/24 11:05 Procedure Insertion date: 01/09/24 Insertion time: 15:20 Prep/Local: betadine x3 Interspace: L3-4 Patient position: sitting Needle: 17 gauge Tuohy Loss of resistance with: saline GIANLUCA at (cm): 4 Catheter placed at SKIN (cm): 12 Catheter in SPACE (cm): 8 Insertion: No CSF, No Blood, No Paresthesia with insertion, No Paresthesia with injection and No Test dose reaction Initial Medications TEST DOSE time: 15:18 TEST DOSE: 1.5% lidocaine with epinephrine 1:200k (mL): 3 BOLUS DOSE time: 15:22 BOLUS DOSE (mL): 10 BOLUS DOSE med: 0.25% bupivacaine (+ 100mcg Fentanyl) Infusion INFUSION: 0.125% bupivacaine Initial rate (mL/hr): 8 Post-procedure Anesthesia date START: 01/09/24 Anesthesia time START: 15:21 Anesthesia date END: 01/10/24 Anesthesia time END: 07:56 Post-procedure Anesthesia Assessment: Yes CV function: HR/BP stable, Yes Resp function: RR/sat/airway adequate, Yes Post-op hydration adequate, Yes Pain control adequate, Yes Nausea & vomiting absent, Yes Temperature > 36 C, Yes Mental status appropriate and No Anesthesia complications
[2024-01-09] MEDS: FAMOTIDINE 20 MG TABLET PO (16:30)
[2024-01-09] MEDS: AMPICILLIN 1,000 MG in SODIUM CHLORIDE 0.9% 100 ML 200 MG IV ×2 (17:19→21:29)
[2024-01-09] MEDS: FENT 2MCG/ML BUPIV 0.125% EPI 200 MCG/100 ML PLAST..BAG 10 MCG EPIDURAL (18:16)
--- NOTE | 2024-01-09 18:26 | PM.OBPNLAB ---
Date/Time Date Patient Seen: 01/09/24 Time Patient Seen: 18:27 Pain Control Pain control: epidural Pelvic Exam Dilation (cm): 5.5 Effacement (%): 100 station: 0 Amniotic membrane status: Bulging Comments: Put finger thru and cervix opened easily Contractions Contractions on admission: regular Monitor mode: External Contraction frequency (min): 3 Contraction duration (min): 1 Contraction pattern: Regular Contraction intensity: Strong/Firm Status status: Category l Heart Rate Baseline: 140 Monitor Accelerations: Present Monitor Decelerations: Absent Monitor Variability: Moderate Assessment and Plan Assessment: active labor Comments: Plan: AROM with clear/sl bloody fluid Expectant management to
[2024-01-09] MEDS: diphenhydrAMINE 50 MG/ML VIAL 25 MG IV (19:48)
[2024-01-09] MEDS: LACTATED RINGERS 1,000 ML 1000 ML IV (21:29)
[2024-01-10] MEDS: AMPICILLIN 1,000 MG in SODIUM CHLORIDE 0.9% 100 ML 200 MG IV ×2 (01:42→05:47)
[2024-01-10] MEDS: FENT 2MCG/ML BUPIV 0.125% EPI 200 MCG/100 ML PLAST..BAG 10 MCG EPIDURAL (03:12)
--- NOTE | 2024-01-10 06:21 | PM.OBPNLAB ---
Date/Time Date Patient Seen: 01/10/24 Time Patient Seen: 06:21 Pain Control Pain control: epidural Pelvic Exam Dilation (cm): 10 Effacement (%): 100 station: +1 Amniotic membrane status: Ruptured Contractions Contractions on admission: regular Monitor mode: External Contraction frequency (min): 3 Contraction duration (min): 1 Contraction pattern: Regular Contraction intensity: Strong/Firm Status status: Category l Heart Rate Baseline: 140 Monitor Accelerations: Present Monitor Decelerations: Early and Variable Monitor Variability: Moderate Assessment and Plan Assessment: active labor Comments: Continue pushing Expectant management to
--- NOTE | 2024-01-10 08:28 | PM.OBPRVD ---
Events: Labor Augmentation Labor & Delivery Delivery date: 01/10/24 Intrapartal Events: Deceleration Cervical ripening method: none Delivery augmentation: rupture of membranes Delivery monitor: external FHT and external uterine Route of delivery: vacuum extraction Indication for instrumentation: nonreassuring FHR tracing Episiotomy description: None L&D Laceration Description: Perineal - 2nd Degree and Vaginal - 2nd Degree Delivery repair: vicryl and chromic Quantitative Blood Loss: 150 Anesthesia Type: Epidural Complications: None Narrative: Patient complete and pushed for 3 hours. A vacuum was applied x1 due to deep variable decelerations with pushing. With 1 contraction and 1 pull the vertex delivered in the right occiput anterior position over an intact perineum at 7:56 a.m.. No nuchal cord. The remainder of the body delivered without difficulty and was placed on mom's abdomen. Pitocin was given in the IV fluids. After the cord stopped pulsing, cord bloods were obtained. The placenta delivered intact with a three-vessel cord at 8:06 a.m.. Fundus was massaged to firm. The perineum/vagina were inspected and there was a second-degree laceration. This was repaired in the usual fashion using 2-0 Vicryl and 2-0 chromic. Hemostasis was achieved. Apgars 7 at 1 minute and 9 at 5 minutes. Estimated blood loss 150 cc. Epidural analgesia. . weight: Baby 1: gender: Male Presentation: vertex Position: Right Occiput Anterior Placenta delivery description: Spontaneous Cord Vessel Description: 3 Vessels score (1 min): 7 score (5 min): 9 weight: 8 lb 5.5 oz Plan for aftercare: Routine care
[2024-01-10] MEDS: KETOROLAC 30 MG/ML VIAL IM (09:57)
[2024-01-10] MEDS: DOCUSATE 100 MG CAPSULE PO (09:57)
[2024-01-10] MEDS: ACETAMINOPHEN 325 MG TABLET 650 MG PO ×3 (09:57→22:05)
[2024-01-10] MEDS: PRENATAL VIT,CALC/IRON/FOLIC 1 TABLET 1 TAB PO (09:57)
[2024-01-10] MEDS: DERMOPLAST SPRAY 20% 60 ML 1 SPRAY TOP (09:57)
[2024-01-10] MEDS: IBUPROFEN 600 MG TABLET PO ×2 (15:59→22:04)
[2024-01-11] MEDS: IBUPROFEN 600 MG TABLET PO ×2 (04:02→09:37)
[2024-01-11] MEDS: ACETAMINOPHEN 325 MG TABLET 650 MG PO ×2 (04:02→09:37)
[2024-01-11 06:28] LABS: Hematocrit 31.5 % (36-46); Hemoglobin 10.8 g/dL (12.0-16.0)
[2024-01-11] MEDS: PRENATAL VIT,CALC/IRON/FOLIC 1 TABLET 1 TAB PO (09:37)
[2024-01-11] MEDS: DOCUSATE 100 MG CAPSULE PO (09:38)
[2024-01-11 10:06] VITALS: BP 107/78; PULSE 61; RESP 16; TEMP 36.9
--- NOTE | 2024-01-11 10:23 | P.DS_ITS ---
Discharge Providers Provider Date of admission: 01/09/24 09:48 Discharge Date: 01/11/24 Primary care physician: Enma Santos DO Consults: 01/09/24 10:33 Consult to Anesthesiology Urgent Comment: Consulting Provider: Anesthesiologist Reason for consultation: Epidural 01/11/24 08:24 Consult to Golf Course Manager Routine Comment: Discharge provider: Tierra Ross MD Summary Hospital Course Date Patient Seen: 01/11/24 Time Patient Seen: 10:23 Diagnoses: 40-2/7 weeks gestation Vacuum assisted vaginal delivery Second-degree vaginal/perineal laceration Hospital Course: Patient is a 33-year-old 1 para 1 who presented on January 09, 2024 in early labor. Due to painful contractions that were not relieved with IV pain medicine, she received an epidural. The next vaginal exam in the evening at 6:00 p.m. showed the patient to be at 5-6 cm/100%/-1 station. Artificial rupture membranes was performed with clear amniotic fluid. She progressed to complete dilation and had a vacuum assisted vaginal delivery on the morning of January 10, 2024. Vacuum was applied due to deep variable decelerations with pushing. She had a second-degree vaginal/perineal laceration which was repaired in the usual fashion. Her course was unremarkable. She was discharged home on day #1. Peripartum Data Delivery Method: Assisted Delivery (Vacuum assisted) Laceration Description: Perineal - 2nd Degree and Vaginal - 2nd Degree Episiotomy description: None Procedures: Epidural analgesia Spontaneous rupture of membranes Vacuum assisted vaginal delivery Repair of second-degree vaginal/perineal laceration complications: none 1: Gender: Male Disposition of : home Status at Discharge Cognitive/behavioral status at discharge: oriented Functional status at discharge: independent ambulation Overall status at discharge: patient is progressing back to baseline Time Spent with Patient Time attestation: Total time spent providing and/or coordinating discharge services: Time spent: Less than 30 minutes Objective Labs 01/11/24 06:19 Labs: Laboratory Results - last 24 hr 01/11/24 06:19 Hgb 10.8 L Hct 31.5 L Exam Vital Signs (past 8 hours): - 01/11/24 10:06 Temperature 98.4 F Pulse Rate 61 Respiratory Rate 16 Blood Pressure 107/78 Narrative Exam Narrative: Generally: Patient is sitting up in bed, holding , no acute distress Fundus: Firm at U -1 Extremities: Negative Homans Discharge Plan Discharge Plan Patient Disposition: Home Provider Discharge Comment: Call with fever, chills, or bleeding vaginally more than a pad in an hour Ibuprofen 600 mg every 6 hours as needed for cramping Tylenol 650 mg every 6 hours as needed Continue vitamins Push oral fluids Discharge orders & Medications Prescriptions: Continued prenat.vits,forest,dlf-rufh-bmpvm [ Vitamin] tablet 1 tab PO DAILY Fish Oil 1,600-500-800 mg/5 mL liquid 5 ml PO DAILY Discontinued ondansetron 4 mg tablet,disintegrating 4 mg PO Q6H PRN (Reason: nausea and vomiting) Qty: 20 2RF aspirin 81 mg tablet,delayed release (DR/EC) 81 mg PO DAILY magnesium 250 mg tablet 250 mg PO DAILY PRN (Reason: insomnia) Unisom (doxylamine) 25 mg tablet 25 mg PO DAILY RSVPreF3 antigen-AS01E (PF) 120 mcg/0.5 mL suspension for reconstitution 0.5 ml IM ONCE Qty: 1 0RF Follow up/Referrals: Tierra Ross MD [Physician] - (6 week Appt: Sunday, February 12 @ 2pm w/ Dr. Ross) Diet/Activity/Treatments Diet: Regular Activity: Nothing in the vagina for 6 weeks Walking is okay Skin/Wound/Dressing Care Report to your healthcare provider any signs of infection, such as:: chills, fever, increased pain and unusual drainage Visit Report/Discharge Packet Instructions: DI for Labor and Delivery, Vaginal Stand Alone Forms: Patient Portal/API, Stroke Signs & Symptoms Discharge Data Primary Care Provider: Enma Santos
== END 2024-01-11 12:30 | disposition home or self-care (01) | DRG 807 ==
PROVIDERS: Admitting Provider Obstetrics & Gynecology; PCP Family Medicine; Referring Provider Obstetrics & Gynecology; Visit Provider Obstetrics & Gynecology
DX: O99.824 Streptococcus B carrier state complicating childbirth (principal); Z37.0 Single live birth; Z3A.40 40 weeks gestation of pregnancy; O76 Abnormality in fetal heart rate and rhythm complicating labor and delivery; O70.1 Second degree perineal laceration during delivery; O47.1 False labor at or after 37 completed weeks of gestation; O48.0 Post-term pregnancy
CPT/HCPCS: 36415; 59025; 59050; 59400; 59409; 81001; 85014; 85018; 85025; 86850; 86900; 86901; 96372; A9270; G0379; J0290; J1200; J1885; J2270; J3010; J3410

== ENCOUNTER 2024-02-19 11:54 | Observation (INO) | payer OTHER, SELFPAY ==
[2024-02-19] VITALS (12 sets, daily range): BP systolic 107–137; BP diastolic 64–93; PULSE 89–115; RESP 14–27; TEMP 36.5–37.7; O2SAT 95–100; BMI 22.1
--- NOTE | 2024-02-19 12:05 | DI.RAD.S_ITS ---
PROCEDURE: XR CHEST 1V INDICATIONS: suspected sepsis TECHNIQUE: One view of the chest was acquired. COMPARISON: None. FINDINGS: Surgical changes and devices: None. Lungs and pleura: Lungs are clear. No pleural effusions or pneumothorax. Mediastinum: Mediastinal contours appear normal. Heart size is normal. Bones and chest wall: No suspicious bony lesions. Overlying soft tissues appear unremarkable. IMPRESSION: No acute cardiopulmonary abnormality is seen. Dictated by: Megan Tinoco MD, PhD on 02/19/2024 at 12:58 Approved by: Megan Tinoco MD, PhD on 02/19/2024 at 12:58
[2024-02-19] MEDS: SODIUM CHLORIDE 0.9% 1,000 ML 1000 ML IV (12:16)
--- NOTE | 2024-02-19 12:18 | EKG_ITS ---
[address] [address] Test Date: 2024-02-19 Pat Name: Madeleine Vaughan Department: Room: Gender: Female Shared Services Manager: DAMIEN : 1990 Requested By: Order Number: [id number] Reading MD: Tai Nieto Measurements Intervals [place] Rate: 112 P: 78 NH: 130 QRS: 75 QRSD: 80 T: 41 QT: 318 QTc: 434 Interpretive Statements Sinus tachycardia Electronically Signed On 02-20-2024 19:42:47 PDT by Tai Nieto
--- NOTE | 2024-02-19 12:27 | PC.NURSE ---
pt came to ED today because she has been experiencing worsening sx of mastitis. Pt states that she was seen by pcp for mastitis and was prescribed abx. pt has been taking abx and does not feel like she is getting better. Concerned that she could possibly have abscess. Pt 6 weeks post- and has experienced mastitis before and treated it at home successfully. Pt now feels like her pain is worsening and reports possibly having a fever at home. Pt is still able to nurse baby, but says that it is very painful and her left breast is deformed. Pt is a&ox4. Denies CP, n/v. Denies any abnormal discharge or blood coming from nipples.
[2024-02-19 12:41] LABS: Add Manual Diff / Slide Review NO; Basophils Absolute Auto 100 /uL (0-100); Basophils Percent Auto 0.4 % (0-2); Eosinophils Absolute Auto 200 /uL (0-450); Eosinophils Percent Auto 1.2 % (2-4); Hematocrit 37.2 % (36-46); Hemoglobin 12.3 g/dL (12.0-16.0); Lymphocytes Absolute Auto 1000 /uL (1100-4500); Lymphocytes Percent Auto 5.7 % (25-40); Mean Corpuscular HGB Conc 33.1 % (30-36); Mean Corpuscular Hemoglobin 30.5 PG (26-34); Mean Corpuscular Volume 92.2 fL (80-100); Monocytes Absolute Auto 1200 /uL (0-900); Neutrophils Absolute Auto 15300 /uL (1500-7000); Neutrophils Percent Auto 85.7 % (50-75); Platelet Count 308 X10^3/uL (150-400); Red Blood Cell Count 4.03 X10^6/uL (4.0-5.2); Red Cell Distribution Width 13.9 % (11.6-14.8); White Blood Cell Count 17.8 X10^3/uL (4.5-11.0)
[2024-02-19 12:47] LABS: INR 1.1 (0.9-1.3); Prothrombin Time 12.8 SECONDS (9.4-12.5)
[2024-02-19 12:49] LABS: PTT Partial Thromboplastin Tim 36 SECONDS (25.1-36.5)
[2024-02-19 12:55] LABS: Alanine Aminotransferase 43 IU/L (<35); Albumin 3.9 g/dL (3.5-5.0); Albumin Globulin Ratio 1.1 (1.0-2.8); Alkaline Phosphatase 124 U/L (38-126); Aspartate Aminotransferase 32 IU/L (14-36); BUN Creatinine Ratio 32.7 (6-22); Bilirubin Total 0.4 mg/dL (0.2-1.3); Blood Urea Nitrogen 18 mg/dL (7-17); Calcium 9.1 mg/dL (8.4-10.2); Carbon Dioxide 25 mmol/L (22-32); Chloride 106 mmol/L (98-107); Estimated Glomerular Filt Rate > 60 mL/min (>60); Globulin 3.4 g/dL (1.7-4.1); Glucose 128 mg/dL (70-100); HEMOLYSIS < 15 (0-50); Lipase 73 U/L (23-300); Potassium 3.9 mmol/L (3.4-5.1); Sodium 139 mmol/L (137-145); Total Protein 7.3 g/dL (6.3-8.2)
--- NOTE | 2024-02-19 12:59 | DI.US.S_ITS ---
PROCEDURE: US BREAST LT LIMITED COMPARISON: None. INDICATIONS: MASTITIS FINDINGS: Color flow in real-time ultrasound of the left breast 3-7 o'clock region or performed. Grayscale images of the real-time examination were reviewed. There is a 6.9 x 7.0 x 4.8 cm irregular, multi lobulated fluid collection with a thickened wall in the left breast at 05:00 o'clock middle depth 4 cm from the nipple. This irregular fluid collection is mildly hypoechoic with internal echoes. This correlates with the area of pain and concern. Color-flow imaging demonstrates that there is increased vascularity in the surrounding tissue. IMPRESSION: The 7 cm irregular fluid collection in the left breast is consistent with an abscess in the setting of mastitis and failure of antibiotic treatment. Surgical consult for incision and drainage is recommended. Findings were given to the ordering ED provider by the technologist at time of exam. Dictated by: Keren Lowe M.D. on 02/19/2024 at 13:48 Approved by: Keren Lowe M.D. on 02/19/2024 at 13:59
[2024-02-19 13:12] LABS: Procalcitonin 0.136 ng/mL (<0.5)
[2024-02-19] MEDS: KETOROLAC 30 MG/ML VIAL 15 MG IV (13:12)
[2024-02-19] MEDS: cefTRIAXone 2,000 MG in SODIUM CHLORIDE 0.9% 100 ML 200 MG IV (13:20)
--- NOTE | 2024-02-19 14:00 | ED.SKABFB ---
HPI - Skin/Abscess/Foreign Bdy <Tomi Dias PA-C - Last Filed: 02/19/24 14:41> General Chief complaint: Skin/Abscess/Foreign Body Stated complaint: Cystitis Time Seen by Provider: 02/19/24 12:47 Source: patient Mode of arrival: Ambulatory Limitations: no limitations History of Present Illness HPI narrative: 34-year-old female who is 6 weeks and presents to the ED with 17 days of left breast pain, redness, swelling. Patient was seen on 02/04/24 by her PCP, was prescribed dicloxacillin but advised to 1st continue from the affected breast to see if there is spontaneous resolution prior to starting the antibiotics. Patient did not take the antibiotics for the next several days, noted some improvement but then regression again. Patient was also seen by her medical social consultant and they seemed to note improvement. Three days ago, patient decided to start the antibiotics since she felt that her situation was worsening. Patient reports worsening redness, pain, swelling and hardness in the left breast. Patient also endorses fever. Patient experienced mild nausea this morning, which she is unsure if it is due to the infection or the antibiotics. Patient denies chest pain, shortness of breath, vomiting, lightheadedness, dizziness, syncope. Related Data Home Medications Medication Instructions Recorded Confirmed prenat.vits,forest,[id number] 1 tab PO DAILY 06/04/18 02/19/24 ( Vitamin tablet) omega 0-[id number] oil 1,600 5 ml PO DAILY 05/28/23 02/19/24 mg-500 mg-800 mg/5 mL oral liquid (Fish Oil) acetaminophen 500 mg tablet 1,000 mg PO Q6H PRN Pain, Moderate 02/19/24 02/19/24 dicloxacillin 500 mg capsule 500 mg PO Q6H 02/19/24 02/19/24 doxylamine succinate 25 mg tablet 12.5 mg PO BEDTIME PRN insomnia 02/19/24 02/19/24 (Unisom (doxylamine)) ibuprofen 800 mg tablet 800 mg PO Q6H 02/19/24 02/19/24 magnesium glycinate 100 mg tablet 100 mg PO BEDTIME 02/19/24 02/19/24 Allergies Allergy/AdvReac Type Severity Reaction Status Date / Time moxifloxacin [From Avelox] Allergy Severe Anaphylaxis Verified 02/20/24 06:52 Review of Systems <Tomi Dias PA-C - Last Filed: 02/19/24 14:41> Constitutional Constitutional: Denies chills, Denies fatigue, Reports fever(s), Denies frequent falls, Denies lethargy and Denies weakness Eyes Eyes: Denies change in vision, Denies eye discharge, Denies irritation and Denies loss of vision ENT Ears, Nose, Mouth, and Throat: Denies change in voice, Denies dizziness, Denies neck pain, Denies sore throat and Denies throat swelling Cardiovascular Cardiovascular: Denies chest pain, Denies irregular heart rhythm, Denies lightheadedness, Denies palpitations, Denies dyspnea, Denies dyspnea on exertion and Denies orthopnea Respiratory Respiratory: Denies cough, Denies dyspnea, Denies dyspnea on exertion and Denies wheezing Gastrointestinal Gastrointestinal: Denies abdominal pain, Denies change in bowel habits, Denies diarrhea, Reports nausea and Denies vomiting Musculoskeletal Musculoskeletal: Denies neck pain and Denies numbness Integumentary/Breasts Skin/Breast: Denies pruritus, Denies erythema, Denies rash and Denies wounds Comments: Left Breast swelling, redness, pain Neurologic Neurologic: Denies behavioral changes, Denies confusion, Denies dizziness, Denies frequent falls, Denies loss of vision, Denies numbness and Denies weakness Psychiatric Psychiatric: Denies anxiety, Denies behavioral changes, Denies confusion, Denies depression, Denies homicidal ideation and Denies suicidal ideation Endocrine Endocrine: Denies fatigue, Denies flushing and Denies palpitations Hematologic/Lymphatic Hematologic/Lymphatic: Denies easy bruising Allergic/Immunologic Allergic/Immunologic: Denies urticaria, Denies throat swelling and Denies wheezing Patient History <Tomi Dias PA-C - Last Filed: 02/19/24 14:41> Medical History COVID-19 affecting in first trimester (~04/2023) Painful menstrual periods Seasonal allergies Migraine Chicken pox (~1991) Measles (~1989) Surgical History Anesthesia History of tonsillectomy (~1991) H/O endoscopy (~2007) History of removal of skin mole [place] teeth extracted (~2007) Family History Granddaughter Leukemia Grandfather Prostate cancer Grandfather Pneumonia Grandmother Cancer Grandmother History of heart disease Social History marital status: number of children: 0 household members: spouse lives independently: Yes caregiver/support person: No housing: house pets and animals: No education level: college (bachelor's degree) occupational status: employed (works from home) current occupational exposures/hazards: No special rosio needs: No travel history: recent ([place], [place], [place], [place]) seatbelt use: always helmet use: Yes water heater temp set < 120 deg: Yes working smoke detector in home: Yes fire extinguisher in home: Yes carbon monox detector in home: Yes firearms in home: No do you feel safe at home: Yes Smoking Status: Never smoker second hand exposure: No alcohol intake: former substance use type: marijuana (occasional edibles, not while /) during the past year weight has: remained stable well-balanced diet: daily or most days daily servings fruits/ve or more times/day caffeine: Yes (1 cup coffee in AM) Type(s) of exercise: walking, bicycling, weight lifting and running frequency: daily duration: 30-45 minutes/day Smoking Status: Never smoker alcohol intake frequency: holidays/special occasions only Substance Use Type: does not use Exam <Tomi Dias PA-C - Last Filed: 02/19/24 14:41> Narrative Exam Narrative: Const General:?cooperative, healthy appearing and comfortable [facility] Head:?normal to inspection Ears:?hearing grossly normal bilaterally Nose:?external nose normal Face and sinus:?normal facial exam and sinuses nontender Mouth:?oral mucosae normal Throat:?posterior oropharynx normal Eyes General:?appearance normal, both eyes and all related structures Neck Neck:?normal visual inspection and no lymphadenopathy noted Resp Effort & Inspection:?normal respiratory effort Auscultation:?clear to auscultation bilaterally Cardio Rate:?regular rate Rhythm:?regular rhythm Integumentary There is significant erythema, swelling, induration, tenderness to palpation of the left breast around the nipple area. No discharge noted on exam. Neuro General:?patient alert, patient awake and patient oriented x3 Initial Vital Signs Initial Vital Signs: Vital Signs Temperature 98.6 F 02/19/24 12:00 Pulse Rate 109 H 02/19/24 12:00 Respiratory Rate 15 02/19/24 12:00 Blood Pressure 122/79 02/19/24 12:00 Pulse Oximetry 97 02/19/24 12:00 Oxygen Delivery Method Room Air 02/19/24 12:00 <Alissa Santiago DO - Last Filed: 02/20/24 08:42> Initial Vital Signs Initial Vital Signs: Vital Signs Temperature 98.6 F 02/19/24 12:00 Pulse Rate 109 H 02/19/24 12:00 Respiratory Rate 15 02/19/24 12:00 Blood Pressure 122/79 02/19/24 12:00 Pulse Oximetry 97 02/19/24 12:00 Oxygen Delivery Method Room Air 02/19/24 12:00 Course <Tomi Dias PA-C - Last Filed: 02/19/24 14:41> Orders Ordered: Acetaminophen (Acetaminophen 325 Mg Tablet) 650 mg PO Q6H PRN PRN Reason: Fever/Mild Pain (1-3) Last Admin: 02/20/24 02:32 Dose: 650 mg Documented By: Admin: 02/19/24 17:56 Dose: 650 mg Documented By: RAFAT Dexamethasone (Dexamethasone 10 Mg/Ml Vial) 8 mg IV NOW PRN PRN Reason: Nausea And Vomiting Fentanyl (Fentanyl 100 Mcg/2 Ml Inj) 0 mcg IV Q5MIN PRN PRN Reason: Pain, Severe (7-10) Fentanyl (Fentanyl 100 Mcg/2 Ml Inj) 0 mcg IV Q5M PRN PRN Reason: Pain, Moderate (4-6) Hydromorphone HCl (Hydromorphone 0.5 Mg Inj) 0.5 mg IV Q2H PRN PRN Reason: Pain, Severe (7-10) Hydromorphone HCl (Hydromorphone 1 Mg Inj) 0 mg IV Q5MIN PRN PRN Reason: Pain, Mild (1-3) Hydromorphone HCl (Hydromorphone 1 Mg Inj) 0 mg IV Q5MIN PRN PRN Reason: Pain, Moderate (4-6) Sodium Chloride (Normal Saline 0.9%) 1,000 mls @ 100 mls/hr IV CONT COUNT INCLUDES THE [facility] Last Admin: 02/20/24 05:35 Dose: 100 mls/hr Documented By: Infusion: 02/20/24 05:35 Dose: Infused Documented By: Admin: 02/19/24 17:58 Dose: 100 mls/hr Documented By: RAFAT Vancomycin HCl (Vancomycin) 1,250 mg in 250 mls @ 250 mls/hr IV Q8H COUNT INCLUDES THE [facility] Last Infusion: 02/20/24 06:45 Dose: Infused Documented By: Admin: 02/20/24 05:37 Dose: 250 mls/hr Documented By: Infusion: 02/19/24 23:30 Dose: Infused Documented By: Admin: 02/19/24 21:57 Dose: 250 mls/hr Documented By: MERLINE Lactated Ringer's (Lactated Ringers) 1,000 mls @ 42 mls/hr IV NOW ONE Stop: 02/21/24 06:55 Last Infusion: 02/20/24 08:31 Dose: Infused Documented By: Admin: 02/20/24 07:08 Dose: 42 mls/hr Documented By: LAURYN Lactated Ringer's (Lactated Ringers) 1,000 mls @ 42 mls/hr IV CONT COUNT INCLUDES THE [facility] Ibuprofen (Ibuprofen 600 Mg Tablet) 600 mg PO Q6H PRN PRN Reason: Fever/Mild Pain (1-3) Last Admin: 02/19/24 17:56 Dose: 600 mg Documented By: RAFAT Metoclopramide HCl (Metoclopramide 10 Mg/2 Ml Inj) 10 mg IV NOW PRN PRN Reason: Nausea And Vomiting Naloxone HCl (Naloxone 0.4 Mg/Ml Vial) 0.2 mg IV Q2MIN PRN PRN Reason: Opiate Reversal Ondansetron HCl (Ondansetron 4 Mg/2 Ml Inj) 4 mg IV NOW PRN PRN Reason: Nausea And Vomiting Oxycodone HCl (Oxycodone Ir 5 Mg Tablet) 5 mg PO Q3H PRN PRN Reason: Pain, Moderate (4-6) Last Admin: 02/20/24 08:40 Dose: 5 mg Documented By: THANH Oxycodone HCl (Oxycodone Ir 5 Mg Tablet) 5 mg PO PACUNOW PRN PRN Reason: Mild or moderate pain Vancomycin HCl (Vancomycin Per Pharmacy) 1 request MISC NOW PRN PRN Reason: Wound Healing Vancomycin HCl (Vancomycin Trough) 1 request [facility] 1330 COUNT INCLUDES THE [facility] Stop: 02/20/24 13:31 Discontinued Medications Bupivacaine HCl (Bupivacaine 0.25% (Pf) Vial) 30 ml INJ NOW ONE Stop: 02/20/24 08:28 Last Admin: 02/20/24 08:27 Dose: 20 ml Documented By: AUSTIN Sodium Chloride (Normal Saline 0.9%) 1,000 mls @ 1,000 mls/hr IV BOLUS ONE Stop: 02/19/24 13:04 Last Infusion: 02/19/24 15:04 Dose: Infused Documented By: Admin: 02/19/24 12:16 Dose: 1,000 mls/hr Documented By: IBETH Vancomycin HCl (Vancomycin) 1,000 mg in 200 mls @ 200 mls/hr IV NOW ONE Stop: 02/19/24 14:11 Last Infusion: 02/19/24 15:20 Dose: 0 mls/hr Documented By: Admin: 02/19/24 14:22 Dose: 200 mls/hr Documented By: BRIGIDA Ceftriaxone Sodium 2,000 mg/ (Sodium Chloride) 100 mls @ 200 mls/hr IV NOW ONE Stop: 02/19/24 13:13 Last Infusion: 02/19/24 14:14 Dose: Infused Documented By: Admin: 02/19/24 13:20 Dose: 200 mls/hr Documented By: NELSY Vancomycin HCl (Vancomycin) 1,250 mg in 250 mls @ 250 mls/hr IV Q12H COUNT INCLUDES THE [facility] Last Admin: 02/19/24 16:50 Dose: Not Given Documented By: RAFAT Ketorolac Tromethamine (Ketorolac 30 Mg/Ml Vial) 15 mg IV NOW ONE Stop: 02/19/24 13:01 Last Admin: 02/19/24 13:12 Dose: 15 mg Documented By: ALLISON Morphine Sulfate (Morphine 4 Mg/Ml Inj) 4 mg IM NOW ONE Stop: 02/19/24 14:56 Last Admin: 02/19/24 18:17 Dose: Not Given Documented By: RAFAT Naloxone HCl (Naloxone 0.4 Mg/Ml Vial) 0.2 mg IV Q2MIN PRN PRN Reason: Opiate Reversal Ondansetron HCl (Ondansetron 4 Mg/2 Ml Inj) 4 mg IV NOW PRN PRN Reason: Nausea And Vomiting Ondansetron HCl (Ondansetron 4 Mg Odt) 4 mg SL NOW PRN PRN Reason: Nausea And Vomiting Vital Signs Vital signs: Vital Signs - 8 hr 02/19/24 12:00 02/19/24 12:07 02/19/24 12:07 Temperature 98.6 F Pulse Rate 109 H 112 H Respiratory Rate 15 Blood Pressure 122/79 137/64 Pulse Oximetry 97 97 Oxygen Delivery Method Room Air 02/19/24 12:30 02/19/24 12:30 02/19/24 13:00 Temperature Pulse Rate 115 H Respiratory Rate 18 Blood Pressure 132/73 128/71 Pulse Oximetry 99 Oxygen Delivery Method 02/19/24 13:00 02/19/24 13:35 02/19/24 13:58 Temperature Pulse Rate 102 H 95 H 97 H Respiratory Rate 19 20 16 Blood Pressure 116/70 128/85 Pulse Oximetry 100 99 100 Oxygen Delivery Method Room Air <Alissa Santiago DO - Last Filed: 02/20/24 08:42> Orders Ordered: Acetaminophen (Acetaminophen 325 Mg Tablet) 650 mg PO Q6H PRN PRN Reason: Fever/Mild Pain (1-3) Last Admin: 02/20/24 02:32 Dose: 650 mg Documented By: Admin: 02/19/24 17:56 Dose: 650 mg Documented By: RAFAT Dexamethasone (Dexamethasone 10 Mg/Ml Vial) 8 mg IV NOW PRN PRN Reason: Nausea And Vomiting Fentanyl (Fentanyl 100 Mcg/2 Ml Inj) 0 mcg IV Q5MIN PRN PRN Reason: Pain, Severe (7-10) Fentanyl (Fentanyl 100 Mcg/2 Ml Inj) 0 mcg IV Q5M PRN PRN Reason: Pain, Moderate (4-6) Hydromorphone HCl (Hydromorphone 0.5 Mg Inj) 0.5 mg IV Q2H PRN PRN Reason: Pain, Severe (7-10) Hydromorphone HCl (Hydromorphone 1 Mg Inj) 0 mg IV Q5MIN PRN PRN Reason: Pain, Mild (1-3) Hydromorphone HCl (Hydromorphone 1 Mg Inj) 0 mg IV Q5MIN PRN PRN Reason: Pain, Moderate (4-6) Sodium Chloride (Normal Saline 0.9%) 1,000 mls @ 100 mls/hr IV CONT COUNT INCLUDES THE [facility] Last Admin: 02/20/24 05:35 Dose: 100 mls/hr Documented By: Infusion: 02/20/24 05:35 Dose: Infused Documented By: Admin: 02/19/24 17:58 Dose: 100 mls/hr Documented By: RAFAT Vancomycin HCl (Vancomycin) 1,250 mg in 250 mls @ 250 mls/hr IV Q8H COUNT INCLUDES THE [facility] Last Infusion: 02/20/24 06:45 Dose: Infused Documented By: Admin: 02/20/24 05:37 Dose: 250 mls/hr Documented By: Infusion: 02/19/24 23:30 Dose: Infused Documented By: Admin: 02/19/24 21:57 Dose: 250 mls/hr Documented By: MERLINE Lactated Ringer's (Lactated Ringers) 1,000 mls @ 42 mls/hr IV NOW ONE Stop: 02/21/24 06:55 Last Infusion: 02/20/24 08:31 Dose: Infused Documented By: Admin: 02/20/24 07:08 Dose: 42 mls/hr Documented By: LAURYN Lactated Ringer's (Lactated Ringers) 1,000 mls @ 42 mls/hr IV CONT COUNT INCLUDES THE [facility] Ibuprofen (Ibuprofen 600 Mg Tablet) 600 mg PO Q6H PRN PRN Reason: Fever/Mild Pain (1-3) Last Admin: 02/19/24 17:56 Dose: 600 mg Documented By: RAFAT Metoclopramide HCl (Metoclopramide 10 Mg/2 Ml Inj) 10 mg IV NOW PRN PRN Reason: Nausea And Vomiting Naloxone HCl (Naloxone 0.4 Mg/Ml Vial) 0.2 mg IV Q2MIN PRN PRN Reason: Opiate Reversal Ondansetron HCl (Ondansetron 4 Mg/2 Ml Inj) 4 mg IV NOW PRN PRN Reason: Nausea And Vomiting Oxycodone HCl (Oxycodone Ir 5 Mg Tablet) 5 mg PO Q3H PRN PRN Reason: Pain, Moderate (4-6) Last Admin: 02/20/24 08:40 Dose: 5 mg Documented By: THANH Oxycodone HCl (Oxycodone Ir 5 Mg Tablet) 5 mg PO PACUNOW PRN PRN Reason: Mild or moderate pain Vancomycin HCl (Vancomycin Per Pharmacy) 1 request MISC NOW PRN PRN Reason: Wound Healing Vancomycin HCl (Vancomycin Trough) 1 request MISC 1330 COUNT INCLUDES THE [facility] Stop: 02/20/24 13:31 Discontinued Medications Bupivacaine HCl (Bupivacaine 0.25% (Pf) Vial) 30 ml INJ NOW ONE Stop: 02/20/24 08:28 Last Admin: 02/20/24 08:27 Dose: 20 ml Documented By: AUSTIN Sodium Chloride (Normal Saline 0.9%) 1,000 mls @ 1,000 mls/hr IV BOLUS ONE Stop: 02/19/24 13:04 Last Infusion: 02/19/24 15:04 Dose: Infused Documented By: Admin: 02/19/24 12:16 Dose: 1,000 mls/hr Documented By: IBETH Vancomycin HCl (Vancomycin) 1,000 mg in 200 mls @ 200 mls/hr IV NOW ONE Stop: 02/19/24 14:11 Last Infusion: 02/19/24 15:20 Dose: 0 mls/hr Documented By: Admin: 02/19/24 14:22 Dose: 200 mls/hr Documented By: BRIGIDA Ceftriaxone Sodium 2,000 mg/ (Sodium Chloride) 100 mls @ 200 mls/hr IV NOW ONE Stop: 02/19/24 13:13 Last Infusion: 02/19/24 14:14 Dose: Infused Documented By: Admin: 02/19/24 13:20 Dose: 200 mls/hr Documented By: NELSY Vancomycin HCl (Vancomycin) 1,250 mg in 250 mls @ 250 mls/hr IV Q12H COUNT INCLUDES THE [facility] Last Admin: 02/19/24 16:50 Dose: Not Given Documented By: RAFAT Ketorolac Tromethamine (Ketorolac 30 Mg/Ml Vial) 15 mg IV NOW ONE Stop: 02/19/24 13:01 Last Admin: 02/19/24 13:12 Dose: 15 mg Documented By: ALLISON Morphine Sulfate (Morphine 4 Mg/Ml Inj) 4 mg IM NOW ONE Stop: 02/19/24 14:56 Last Admin: 02/19/24 18:17 Dose: Not Given Documented By: RAFAT Naloxone HCl (Naloxone 0.4 Mg/Ml Vial) 0.2 mg IV Q2MIN PRN PRN Reason: Opiate Reversal Ondansetron HCl (Ondansetron 4 Mg/2 Ml Inj) 4 mg IV NOW PRN PRN Reason: Nausea And Vomiting Ondansetron HCl (Ondansetron 4 Mg Odt) 4 mg SL NOW PRN PRN Reason: Nausea And Vomiting Vital Signs Vital signs: Vital Signs - 8 hr 02/19/24 12:00 02/19/24 12:07 02/19/24 12:07 Temperature 98.6 F Pulse Rate 109 H 112 H Respiratory Rate 15 Blood Pressure 122/79 137/64 Pulse Oximetry 97 97 Oxygen Delivery Method Room Air 02/19/24 12:30 02/19/24 12:30 02/19/24 13:00 Temperature Pulse Rate 115 H Respiratory Rate 18 Blood Pressure 132/73 128/71 Pulse Oximetry 99 Oxygen Delivery Method 02/19/24 13:00 02/19/24 13:35 02/19/24 13:58 Temperature Pulse Rate 102 H 95 H 97 H Respiratory Rate 19 20 16 Blood Pressure 116/70 128/85 Pulse Oximetry 100 99 100 Oxygen Delivery Method Room Air MDM - Skin/Abscess/Foreign Bdy <Tomi Dias PA-C - Last Filed: 02/19/24 14:41> Lab Data 02/19/24 12:17 02/19/24 12:17 Labs: Lab Results 02/19/24 02/19/24 Range/Units 12:17 13:56 WBC 17.8 H (4.5-11.0) X10^3/uL RBC 4.03 (4.0-5.2) X10^6/uL Hgb 12.3 (12.0-16.0) g/dL Hct 37.2 (36-46) % MCV 92.2 (80-100) fL MCH 30.5 (26-34) PG MCHC 33.1 (30-36) % RDW 13.9 (11.6-14.8) % Plt Count 308 (150-400) X10^3/uL Neut % (Auto) 85.7 H (50-75) % Lymph % (Auto) 5.7 L (25-40) % [place] % (Auto) 7.0 (3-14) % Eos % (Auto) 1.2 L (2-4) % Baso % (Auto) 0.4 (0-2) % Neut # (Auto) 92334 H (4552-7535) /uL Lymph # (Auto) 1000 L (9361-2427) /uL [place] # (Auto) 1200 H (0-900) /uL Eos # (Auto) 200 (0-450) /uL Baso # (Auto) 100 (0-100) /uL PT 12.8 H (9.4-12.5) SECONDS INR 1.1 (0.9-1.3) APTT 36 (25.1-36.5) SECONDS Sodium 139 (137-145) mmol/L Potassium 3.9 (3.4-5.1) mmol/L Chloride 106 (98-107) mmol/L Carbon Dioxide 25 (22-32) mmol/L BUN 18 H (7-17) mg/dL Creatinine 0.55 (0.52-1.04) mg/dL Estimated GFR > 60 (>60) mL/min BUN/Creatinine Ratio 32.7 H (6-22) Glucose 128 H (70-100) mg/dL Lactate 1.0 (0.7-2.1) mmol/L Calcium 9.1 (8.4-10.2) mg/dL Total Bilirubin 0.4 (0.2-1.3) mg/dL AST 32 (14-36) IU/L ALT 43 H (<35) IU/L Alkaline Phosphatase 124 (38-126) U/L Total Protein 7.3 (6.3-8.2) g/dL Albumin 3.9 (3.5-5.0) g/dL Globulin 3.4 (1.7-4.1) g/dL Albumin/Globulin Ratio 1.1 (1.0-2.8) Lipase 73 (23-300) U/L Procalcitonin 0.136 (<0.5) ng/mL Urine RBC 0-1/hpf (0-5/HPF) Urine WBC None seen (0-5/HPF) Ur Squamous Epith Cells 0-1 /hpf (0-5/HPF) Urine Bacteria None seen (None) Ur Culture Indicated? Cult not indicated Vol Urine Centrifuged 10ml (spun) Point of Care Testing Test Results Negative Urine Dip Bedside Urine Glucose Negative Bedside Urine Bilirubin - Negative Bedside Urine Ketone - Negative Urine Specific [place] 1.015 Bedside Urine Occult Blood +/- Bedside Urine pH 6.0 Bedside Urine Protein - Negative Bedside Urine Urobilinogen - Negative Bedside Urine Nitrite - Negative Bedside Urine Leukocytes - Negative Esterase [facility] Medical decision making narrative: 34-year-old female who is 6 weeks and presents to the ED with 17 days of left breast pain, redness, swelling. Patient presents to the ED with tachycardia of 106. Labs were obtained with a elevated WBC of 17.8. Patient triggered sepsis. Patient started on sepsis fluids and IV antibiotics initiated. Patient given Toradol for pain. There is concern for mastitis versus breast abscess versus sepsis versus other. Will obtain breast ultrasound, reassess. Ultrasound shows a 7 cm irregular fluid collection in the left breast consistent with an abscess in the setting of mastitis and failure of antibiotic treatment. Dr. Carranza from surgery was consulted and he graciously accepts the patient for admission and I and D procedure to drain the abscess. Discussed findings and plan with patient. Patient is tearful but agreeable with the plan. Patient is admitted to surgery. <Alissa Santiago, DO - Last Filed: 02/20/24 08:42> Lab Data Labs: Lab Results 02/19/24 02/19/24 Range/Units 12:17 13:56 WBC 17.8 H (4.5-11.0) X10^3/uL RBC 4.03 (4.0-5.2) X10^6/uL Hgb 12.3 (12.0-16.0) g/dL Hct 37.2 (36-46) % MCV 92.2 (80-100) fL MCH 30.5 (26-34) PG MCHC 33.1 (30-36) % RDW 13.9 (11.6-14.8) % Plt Count 308 (150-400) X10^3/uL Neut % (Auto) 85.7 H (50-75) % Lymph % (Auto) 5.7 L (25-40) % [place] % (Auto) 7.0 (3-14) % Eos % (Auto) 1.2 L (2-4) % Baso % (Auto) 0.4 (0-2) % Neut # (Auto) 33502 H (2505-8456) /uL Lymph # (Auto) 1000 L (6123-8525) /uL [place] # (Auto) 1200 H (0-900) /uL Eos # (Auto) 200 (0-450) /uL Baso # (Auto) 100 (0-100) /uL PT 12.8 H (9.4-12.5) SECONDS INR 1.1 (0.9-1.3) APTT 36 (25.1-36.5) SECONDS Sodium 139 (137-145) mmol/L Potassium 3.9 (3.4-5.1) mmol/L Chloride 106 (98-107) mmol/L Carbon Dioxide 25 (22-32) mmol/L BUN 18 H (7-17) mg/dL Creatinine 0.55 (0.52-1.04) mg/dL Estimated GFR > 60 (>60) mL/min BUN/Creatinine Ratio 32.7 H (6-22) Glucose 128 H (70-100) mg/dL Lactate 1.0 (0.7-2.1) mmol/L Calcium 9.1 (8.4-10.2) mg/dL Total Bilirubin 0.4 (0.2-1.3) mg/dL AST 32 (14-36) IU/L ALT 43 H (<35) IU/L Alkaline Phosphatase 124 (38-126) U/L Total Protein 7.3 (6.3-8.2) g/dL Albumin 3.9 (3.5-5.0) g/dL Globulin 3.4 (1.7-4.1) g/dL Albumin/Globulin Ratio 1.1 (1.0-2.8) Lipase 73 (23-300) U/L Procalcitonin 0.136 (<0.5) ng/mL Urine RBC 0-1/hpf (0-5/HPF) Urine WBC None seen (0-5/HPF) Ur Squamous Epith Cells 0-1 /hpf (0-5/HPF) Urine Bacteria None seen (None) Ur Culture Indicated? Cult not indicated Vol Urine Centrifuged 10ml (spun) Point of Care Testing Test Results Negative Urine Dip Bedside Urine Glucose Negative Bedside Urine Bilirubin - Negative Bedside Urine Ketone - Negative Urine Specific [place] 1.015 Bedside Urine Occult Blood +/- Bedside Urine pH 6.0 Bedside Urine Protein - Negative Bedside Urine Urobilinogen - Negative Bedside Urine Nitrite - Negative Bedside Urine Leukocytes - Negative Esterase Discharge Plan Departure Patient Disposition: Admitted to Surgery Clinical Impression: Mastitis, Abscess of breast Admit Date/Time: 02/19/24 14:17 Admit Provider: Erik Carranza ED Sign-out <Alissa Santiago, DO - Last Filed: 02/20/24 08:42> Cosign ED Attending Cosignature Attestation: I was available for consultation.
--- NOTE | 2024-02-19 14:21 | P.HP_ITS ---
History of Present Illness History of Present Illness Date Patient Seen: 02/19/24 Time Patient Seen: 15:54 Chief complaint: mistitis Narrative: Madeleine Vaughan is a 34-year-old woman 6 weeks admitted with a left breast abscess. For the past several weeks she has had mastitis for which she has been treated with p.o. dicloxacillin. Her pain worsened over the past few days and she presented to the [facility] Emergency Department February 18. Upon arrival afebrile heart rate 110, afebrile, WBC 18. Breast ultrasound demonstrates 7 cm abscess. [facility] Medical History COVID-19 affecting in first trimester (~04/2023) Painful menstrual periods Seasonal allergies Migraine Chicken pox (~1991) Measles (~1989) Surgical History Anesthesia History of tonsillectomy (~1991) H/O endoscopy (~2006) History of removal of skin mole [place] teeth extracted (~2007) Family History Granddaughter Leukemia Grandfather Prostate cancer Grandfather Pneumonia Grandmother Cancer Grandmother History of heart disease Social History marital status: number of children: 0 household members: spouse lives independently: Yes caregiver/support person: No housing: house pets and animals: No education level: college (bachelor's degree) occupational status: employed (works from home) current occupational exposures/hazards: No special rosio needs: No travel history: recent ([place], [place], [place], [place]) seatbelt use: always helmet use: Yes water heater temp set < 120 deg: Yes working smoke detector in home: Yes fire extinguisher in home: Yes carbon monox detector in home: Yes firearms in home: No do you feel safe at home: Yes Smoking Status: Never smoker second hand exposure: No alcohol intake: former (1-2/week when not ) substance use type: marijuana (occasional edibles, not while /) during the past year weight has: remained stable well-balanced diet: daily or most days daily servings fruits/ve or more times/day caffeine: Yes (1 cup coffee in AM) Type(s) of exercise: walking, bicycling, weight lifting and running frequency: daily duration: 30-45 minutes/day Meds Home Medications and Allergies Home Medications Medication Instructions Recorded Confirmed Type prenat.vits,forest,lqx-pkvf-shikl 1 tab PO DAILY 06/04/18 01/09/24 History ( Vitamin tablet) omega 4-oyj-hhz-fish oil 1,600 5 ml PO DAILY 05/28/23 01/09/24 History mg-500 mg-800 mg/5 mL oral liquid (Fish Oil) hydroxyzine HCl 25 mg tablet 25 mg PO BID PRN anxiety #20 tabs 01/17/24 Rx Allergies Allergy/AdvReac Type Severity Reaction Status Date / Time moxifloxacin [From Avelox] Allergy Severe Anaphylaxis Verified 02/19/24 12:00 Exam Vital Signs (past 8 hours): - 02/19/24 12:00 02/19/24 12:07 02/19/24 12:07 Temperature 98.6 F Pulse Rate 109 H 112 H Respiratory Rate 15 Blood Pressure 122/79 137/64 Pulse Oximetry 97 97 Oxygen Delivery Method Room Air 02/19/24 12:30 02/19/24 12:30 02/19/24 13:00 Temperature Pulse Rate 115 H Respiratory Rate 18 Blood Pressure 132/73 128/71 Pulse Oximetry 99 Oxygen Delivery Method 02/19/24 13:00 02/19/24 13:35 02/19/24 13:58 Temperature Pulse Rate 102 H 95 H 97 H Respiratory Rate 19 20 16 Blood Pressure 116/70 128/85 Pulse Oximetry 100 99 100 Oxygen Delivery Method Room Air Oxygen Delivery Method Room Air Narrative Exam Narrative: GENERAL: A well nourished, well developed adult woman HEENT: Normocephalic, atraumatic. No scleral icterus CHEST: Rising symmetrically. No audible wheezes Left breast fluctuance and erythema over the lower portion of the breast. Painful with palpation. CARDIOVASCULAR: Warm and well perfused. Regular rate ABDOMEN: Soft, non-tender, non-distended EXTREMITIES: Normal tone and without edema. NEUROLOGIC: Moving all extremities spontaneously. No gross motor deficits. Objective Labs 02/19/24 12:17 02/19/24 12:17 Labs: Laboratory Results - last 24 hr 02/19/24 12:17 WBC 17.8 H RBC 4.03 Hgb 12.3 Hct 37.2 MCV 92.2 MCH 30.5 MCHC 33.1 RDW 13.9 Plt Count 308 Neut % (Auto) 85.7 H Lymph % (Auto) 5.7 L [place] % (Auto) 7.0 Eos % (Auto) 1.2 L Baso % (Auto) 0.4 Neut # (Auto) 22610 H Lymph # (Auto) 1000 L [place] # (Auto) 1200 H Eos # (Auto) 200 Baso # (Auto) 100 PT 12.8 H INR 1.1 APTT 36 Sodium 139 Potassium 3.9 Chloride 106 Carbon Dioxide 25 BUN 18 H Creatinine 0.55 Estimated GFR > 60 BUN/Creatinine Ratio 32.7 H Glucose 128 H Lactate 1.0 Calcium 9.1 Total Bilirubin 0.4 AST 32 ALT 43 H Alkaline Phosphatase 124 Total Protein 7.3 Albumin 3.9 Globulin 3.4 Albumin/Globulin Ratio 1.1 Lipase 73 Procalcitonin 0.136 Assessment & Plan Assessment and plan (1) Left breast abscess: Status: Acute Assessment & Plan narrative: 34-year-old healthy woman with left mastitis and associated abscess. Imaging demonstrates a 7 cm abscess. Interventional Radiology not available. Recommend proceeding with incision and drainage of abscess in operating room. Overview of procedure discussed. Risks including hemorrhage, infection, chronic wound discussed. -regular diet NPO after midnight -vancomycin -incision and drainage 02/19
[2024-02-19] MEDS: VANCOMYCIN 1,000 MG/200 ML PIGGYBACK 200 MG IV (14:22)
[2024-02-19 14:29] LABS: Bacteria Urine None Seen; Culture Indicated Urine Cult Not Indicated; RBC Urine 0-1/HPF (0-5/HPF); Squamous Epithelial Cell Urine 0-1 /HPF (0-5/HPF); Urine Volume 10mL (spun); WBC Urine None Seen (0-5/HPF)
--- NOTE | 2024-02-19 17:29 | PC.NURSE ---
Patient admitted for mastitis to left breast, and possible abcess. She will be going down to surgery in the morning for and I&D of her l.breast. Area is red and hard to touch under nipple and distal portion of breast. Area is red, and tender to touch. Patient is going to bring in her own breast pump this evening when her gets here. She is 6 weeks post . Patient is eating some dinner and will be npo after midnight.
[2024-02-19] MEDS: IBUPROFEN 600 MG TABLET PO (17:56)
[2024-02-19] MEDS: ACETAMINOPHEN 325 MG TABLET 650 MG PO (17:56)
[2024-02-19] MEDS: SODIUM CHLORIDE 0.9% 1,000 ML 100 ML IV (17:58)
[2024-02-19] MEDS: VANCOMYCIN 1,250 MG/250 ML PIGGYBACK 250 MG IV (21:57)
--- NOTE | 2024-02-19 23:25 | PC.NURSE ---
Addendum entered by Adri Craven R.N. 02/20/24 06:52: 0645 Left via bed with SOL Christianson, to go to surgery. Has been NPO since 0000 except for sips with Tylenol at 0232. Original Note: Patient is alert and oriented. Breath sounds CTA with RA sat of 96%. HRR. Denied nausea. BT present and is passing flatus. Voiding without dysuria per patient. Is independent with mobility. Left breast with erythema, swelling, warmth and tender but receding from previously drawn borders. Rated pain severity as 2/10 and tolerable. Refused SCD's as getting up frequently to bathroom but is wearing her own JOSE MANUEL type stockings. Was able to get up and showered earlier. Temp low grade at 99.1 and states she is feeling better. Has been pumping/dumping breast. Is aware she will be NPO after 0000 although she states plan is to do surgery under local anesthetic. Fall risk score is low.
[2024-02-20] VITALS (15 sets, daily range): BP systolic 96–140; BP diastolic 66–94; PULSE 64–124; RESP 12–18; TEMP 35.7–38.5; O2SAT 96–100; BMI 22.1
[2024-02-20] MEDS: ACETAMINOPHEN 325 MG TABLET 650 MG PO ×2 (02:32→21:51)
[2024-02-20] MEDS: SODIUM CHLORIDE 0.9% 1,000 ML 100 ML IV (05:35)
[2024-02-20] MEDS: VANCOMYCIN 1,250 MG/250 ML PIGGYBACK 250 MG IV ×3 (05:37→21:57)
[2024-02-20] MEDS: LACTATED RINGERS 1,000 ML 42 ML IV (07:08)
--- NOTE | 2024-02-20 07:17 | SUR.OPER ---
Supine on padded OR bed, head on pillow, arms secured on padded arm boards at <90 degrees abduction, legs uncrossed, safety belt at thigh, tape over blanket over lower legs.
--- NOTE | 2024-02-20 07:36 | PM.PREOP ---
Pre-operative Note Interval Note History & Physical reviewed/Exam performed by Physician: Yes Changes to H&P: No
[2024-02-20] MEDS: BUPIVACAINE 0.25% (PF) VIAL 30 ML INJ (08:27)
--- NOTE | 2024-02-20 08:32 | PM.OP.1 ---
Operative Date/Time/Diagnoses Date of procedure: 02/20/24 Time of procedure: 08:32 Pre-op diagnosis: breast abscess Post-op diagnosis: same Procedure & Clinicians Procedure: Incision and drainage of left breast abscess Same procedure as scheduled: Yes Indications: 34F 6 weeks who developed L mastitis which has progressed to a 7cm abscess. She is here for incision and drainage. Surgeon: Erik Carranza Anesthesia Type: General Operative Notes Findings: 200 cc of purulent fluid Specimen(s): other (breast abscess) Estimated Blood Loss (mL): 10 Procedure in detail: patient was brought to the operating room. Monitored anesthesia was induced. Bilateral lower extremity compression stockings were applied. She was prepped and draped in sterile fashion time out performed. An incision was made on the Left areola tissue and a counter incision. 200 ml of purulent material drained and sample was sent for microbiology. 1/4 inch hernandez was placed through the incision and the wound was copiously irrigated. Sponge and instrument count was correct. She tolerated the procedure well and was transferred to recovery in stable condition. Complications: none Post-operative Condition: stable
[2024-02-20] MEDS: OXYCODONE IR 5 MG TABLET PO ×3 (08:40→18:39)
--- NOTE | 2024-02-20 09:18 | PC.NURSE ---
Day shift: Back in room from PACU at approx 0900. Does c/o left breast pain but is calling it more localized. Was medicated in PACU. VS WNL. RA 99%. Denies any nausea. Call light in reach. Just ordered a cheeseburger for lunch. Will continue to monitor and continue with post-op plan of care.
[2024-02-20] MEDS: HYDROMORPHONE 0.5 MG INJ IV (09:34)
[2024-02-20] MEDS: IBUPROFEN 600 MG TABLET PO ×2 (11:56→21:52)
--- NOTE | 2024-02-20 13:04 | CM.DANOTE ---
Brief DCP Assessment note Pt is a 34yo F here 6weeks admitted for left breast abscess. I&D of left breast with Dr. Carranza 02.20.24. PCP Enma Ren NUTRITION TECHNICIAN reviewed EMR. Per surgeon, potential dc later today vs tomorrow. Per RN, pt having some nausea/vomiting in the afternoon. difficulty controlling pain. spouse and baby in room with her. RN doesn't anticipate any DCP needs. NUTRITION TECHNICIAN attempted to meet with pt. Resting comfortably with baby/spouse in room, NUTRITION TECHNICIAN allowed them to sleep. P: home with spouse support when medically stable. no anticipated CM needs. CM team will continue to follow as needed. JESSICA Ervin Discharge Planning/Care Management CM Discharge Assessment Start: 02/20/24 13:02 Freq: Status: Active Protocol: Document 02/20/24 13:02 (Rec: 02/20/24 13:04 [id number]) Discharge Planning Assessment Assigned Executive Pilot JESSICA Campbell DPOA/Assigned Designee Name Arthur spouse Contact Information [phone] Advance Directives? Yes Advance Directives on File Yes History Provided By Patient Prior Living Arrangements House Household Members spouse,children Type of transporation used prior to Drives own vehicle admit Independent with ADL's Yes Is patient alert and oriented? Yes Discharge Plan Home Transportation Arrangement spouse Referrals Initiated None needed Whiteboard Updated in Patient Room with No name and ext. # of Executive Pilot Review Status In Process Please Provide Date Initial DC 02/20/24 Assessment Was Performed Next Review Type Continued Stay Review
[2024-02-20 15:36] LABS: Vancomycin Trough 6.8 ug/mL (10-20)
[2024-02-20] MEDS: SODIUM CHLORIDE 0.9% FLUSH 10 ML IV (21:53)
--- NOTE | 2024-02-20 22:52 | PC.NURSE ---
Patient is alert and oriented but very weepy; expressing belief that she is the cause of her mastitis, that she delayed treatment too long, that she was on wrong antibiotics initially and that incision was placed too high which is preventing her from pumping. OB RN was contacted re: pumping with hernandez drain and Dr. Ross was in the OB unit and came to see patient and discuss the issue. Per Dr. Ross patient was okayed to take a shower and attempt to self express but instructed not to pump the left breast during the night. Shower did not help to alleviate the discomfort from engorgement so provided warm washcloths with warm blanket over in attempt to lessen discomfort and promote milk let down. Also medicated with tylenol + ibuprofen. Patient provided reassurance that she is not to blame for situation. Breath sounds CTA with RA sat of 96%. HRR. Denies nausea. BT present and abdomen is soft. Denies dysuria with urination. Independent with mobility. Dressing to left breast changed while Dr. Ross was in room. Refusing SCD's but wearing own compression stockings. Fall risk score is low.
[2024-02-21] MEDS: VANCOMYCIN 1,250 MG/250 ML PIGGYBACK 250 MG IV (03:43)
[2024-02-21 03:48] VITALS: BP 120/86; PULSE 84; RESP 18; TEMP 36.3; O2SAT 98
[2024-02-21] MEDS: ACETAMINOPHEN 325 MG TABLET 650 MG PO ×2 (03:48→09:16)
[2024-02-21] MEDS: IBUPROFEN 600 MG TABLET PO ×2 (03:48→09:16)
[2024-02-21 08:00] VITALS: BP 118/72; PULSE 68; RESP 16; TEMP 36.2; O2SAT 98
[2024-02-21] MEDS: SODIUM CHLORIDE 0.9% FLUSH 10 ML IV (08:41)
--- NOTE | 2024-02-21 11:37 | PM.DS.1 ---
History of Present Illness History of Present Illness Chief complaint: Mastitis Narrative: Madeleine Vaughan is a 34-year-old woman 6 weeks admitted with a left breast abscess. For the past several weeks she has had mastitis for which she has been treated with p.o. dicloxacillin. Her pain worsened over the past few days and she presented to the [facility] Emergency Department February 18. Upon arrival afebrile heart rate 110, afebrile, WBC 18. Breast ultrasound demonstrates 7 cm abscess. Discharge Providers Provider Date of admission: 02/19/24 14:17 Discharge Date: 02/21/24 Primary care physician: Enma Santos, DO Discharge provider: Erik Carranza MD Summary Hospital Course Discharge Diagnosis: Breast abscess Hospital Course: Madeleine underwent a incision and drainage of a left breast abscess February 19. Unremarkable postoperative course. The microbiology is currently pending however initial Gram stain does not show any organisms. She has been on antibiotics prior to the procedure. Plan is to discharge home on a course of Augmentin and this may be altered depending on culture and sensitivity. She will follow up with surgical clinic next week for removal of a [place] drain. Exam Vital Signs (past 8 hours): - 02/21/24 03:48 02/21/24 03:48 02/21/24 07:00 Temperature 97.3 F L Pulse Rate 84 Respiratory Rate 18 Blood Pressure 120/86 Pulse Oximetry 98 98 Oxygen Delivery Method Room Air Room Air Oxygen Flow Rate 0 0 02/21/24 08:00 02/21/24 08:00 Temperature 97.1 F L Pulse Rate 68 Respiratory Rate 16 Blood Pressure 118/72 Pulse Oximetry 98 98 Oxygen Delivery Method Room Air Oxygen Flow Rate Oxygen Delivery Method Room Air Oxygen Flow Rate 0 Narrative Exam Narrative: General adult woman alert oriented no acute distress Left breast markedly reduced erythema and tenderness. Independence drain in place with some purulent drainage. Objective Labs 02/19/24 12:17 02/19/24 12:17 Labs: Laboratory Results - last 24 hr 02/20/24 13:23 Vancomycin Trough 6.8 L [facility] Medical History COVID-19 affecting in first trimester (~04/2023) Painful menstrual periods Seasonal allergies Migraine Chicken pox (~1991) Measles (~1989) Surgical History Anesthesia History of tonsillectomy (~1991) H/O endoscopy (~2006) History of removal of skin mole [place] teeth extracted (~2007) Family History Granddaughter Leukemia Grandfather Prostate cancer Grandfather Pneumonia Grandmother Cancer Grandmother History of heart disease Social History marital status: number of children: 0 household members: spouse and children lives independently: Yes caregiver/support person: No housing: house pets and animals: No education level: college occupational status: employed current occupational exposures/hazards: No special rosio needs: No travel history: recent seatbelt use: always helmet use: Yes water heater temp set < 120 deg: Yes working smoke detector in home: Yes fire extinguisher in home: Yes carbon monox detector in home: Yes firearms in home: No do you feel safe at home: Yes Smoking Status: Never smoker second hand exposure: No alcohol intake: former substance use type: marijuana during the past year weight has: remained stable well-balanced diet: daily or most days daily servings fruits/ve or more times/day caffeine: Yes (1 cup coffee in AM) Type(s) of exercise: walking, bicycling, weight lifting and running frequency: daily duration: 30-45 minutes/day Discharge Plan Discharge Plan Patient Disposition: Home Provider Discharge Comment: Clean gauze dressing over incision as needed. Drain removal SundayFebruary 25 surgical clinic Discharge orders & Medications Prescriptions: Continued prenat.vits,forest,cmj-gxsd-oeqxm [ Vitamin] tablet 1 tab PO DAILY Fish Oil 1,600-500-800 mg/5 mL liquid 5 ml PO DAILY ibuprofen 800 mg Tablet 800 mg PO Q6H acetaminophen 500 mg Tablet 1,000 mg PO Q6H PRN (Reason: Pain, Moderate) magnesium glycinate 100 mg Tablet 100 mg PO BEDTIME Discontinued dicloxacillin 500 mg capsule 500 mg PO Q6H No Action amoxicillin-pot clavulanate [Augmentin] 500-125 mg tablet 1 tab PO BID Qty: 10 0RF fluconazole 150 mg tablet 150 mg PO ONCE Qty: 2 0RF Rx Instructions: as a single dose hydrocortisone [Anusol-HC] 2.5 % cream with perineal applicator 1 applic NM BID-QID PRN (Reason: hemorrhoid) Qty: 30 0RF Follow up/Referrals: Erik Carranza MD [Physician] - 02/25/24 (Drain removal surgical office) Enma Santos DO [Primary Care Provider] - Diet/Activity/Treatments Diet: Diet as Tolerated Skin/Wound/Dressing Care Report to your healthcare provider any signs of infection, such as:: chills, fever, increased pain and unusual redness Visit Report/Discharge Packet Instructions: DI for Incision and Drainage, [facility]: Wound Care Stand Alone Forms: Congestive Heart Failure, Patient Portal/API, Stroke Signs & Symptoms, Surgery Discharge Discharge Data Primary Care Provider: Enma Santos Attending Provider: Erik Carranza Admit Date/Time: 02/19/24 14:17
[2024-02-21 12:00] VITALS: BP 114/81; RESP 17; TEMP 36.4; O2SAT 98
== END 2024-02-21 13:49 | disposition home or self-care (01) ==
LOC: ED 14:13 → AC 14:52
PROVIDERS: Emergency Medicine; Admitting Provider Surgery; Emergency Provider Student in an Organized Health Care Education/Training Program; PCP Family Medicine; Referring Provider Student in an Organized Health Care Education/Training Program; Visit Provider Surgery
PROC: (CPT 10060; principal; 2024-02-20 07:45)
DX: N61.1 Abscess of the breast and nipple (principal)
CPT/HCPCS: 10060; 36415; 71045; 76642; 80053; 80202; 81003; 81015; 81025; 83605; 83690; 84145; 85025; 85610; 85730; 87040; 87070; 87075; 87077; 87147; 87186; 87205; 93005; 96365; 96366; 96367; 96375; 99284; G0378; J0696; J1170; J1885; J2405; J2704

== ENCOUNTER → 2024-03-06 10:08 | Outpatient (CLI) | payer OTHER, SELFPAY ==
[2024-02-21 12:09] VITALS: BMI 22.1
--- NOTE | 2024-03-06 10:10 | DI.US.S_ITS ---
LIMITED ULTRASOUND OF LEFT BREAST: 03/06/2024 CLINICAL: Follow up left breast abscess. Comparison is made to exam dated: 02/19/2024 [facility]. Color flow and real-time ultrasound of the left breast 3 o'clock region were performed. Johnston scale images of the real-time examination were reviewed. There is a 5.4 cm x 2.1 cm x 4.8 cm irregular fluid collection in the left breast at 3 o'clock middle depth 8 cm from the nipple. This irregular fluid collection is hypoechoic with internal echoes. This correlates as palpated, to the reported area of previous pain, with area of clinical concern and correlates with site of recent surgical incision and drainage with removal of drainage catheter. Patient reports no overlying erythema or calor. Patient also reports ability to express thin, milky material from this collection. No definite purulent material seen. Color flow imaging demonstrates that there is increased vascularity in surrounding tissue. IMPRESSION: PROBABLY BENIGN The 5.4 cm x 2.1 cm x 4.8 cm irregular fluid collection in the left breast has a differential diagnosis of an abscess, possible galactocele, or a post surgical fluid collection/seroma with milky components possibly from milk duct fistula in the setting of previous surgical intervention and patient still . A cyst aspiration is recommended to collapse cavity to facilitate healing. Surgical intervention to follow if aspiration does not resolve findings. In either situation, a short interval follow up sonogram in 1-2 months after treatment is recommended to document complete resolution. Findings were discussed with Dr. Carranza at time of study completion. This exam was interpreted at Station ID: [id number]. Electronically Signed By: Christopher Roberts M.D. at/:03/06/2024 15:23:35 Entry: - 03/07/2024 10:02:01 letter sent: Clinical Evaluation Ultrasound BI-RADS: 3 Probably benign
== END ==
LOC: US 10:09
PROVIDERS: PCP Family Medicine; Referring Provider Surgery; Visit Provider Surgery
DX: N61.1 Abscess of the breast and nipple (principal)
CPT/HCPCS: 76642

== ENCOUNTER → 2024-03-10 13:45 | Outpatient (CLI) | payer OTHER, SELFPAY ==
[2024-02-21 12:09] VITALS: BMI 22.1
--- NOTE | 2024-03-10 | PATH_ITS ---
Note [facility] Accession Number: [id number] TESTS RESULT FLAG UNITS REF RANGE LAB Clinician Provided Cytology Information No. of containers..01 Other (Miscellaneous) Source: LEFT BREAST DEEP FLUID COLLECTION DIAGNOSIS: LEFT BREAST DEEP FLUID COLLECTION. NEGATIVE FOR MALIGNANT CELLS. FOAMY/LIPID-LADEN MACROPHAGES AND NEUTROPHILS ARE ALSO PRESENT. THIS INTERPRETATION INCLUDES EVALUATION OF A CELL BLOCK. Pathologist ICD10: N64.89 Signed out by: Chico Kelly MD, Pathologist NPI- [id number] Performed by: Will Rice, Gis Programmer ([facility]) Gross description: 15 CC, ORANGE, CLOUDY RECEIVED: FRESH IN 60 ML SYRINGE. /VDU 03/11/2024 0641 Local FLAG LEGEND: L-Low Normal,H-High Normal,LL-Alert Low,HH-Alert High <-Panic Low,>-Panic High,A-Abnormal,AA-Critical Abnormal Performed at: 01 =Z [facility] [address] [place] [address] [address], [place] [address] Joel Short MD, Performed at: 01 [facility] [address] [place] [address] [address], [place], [place] [id number] MD Joel Short MD Phone: [phone]
--- NOTE | 2024-03-10 13:46 | DI.US.S_ITS ---
PROCEDURE: Breast fluid collection aspiration INDICATIONS: left breast fluid collection TECHNIQUE: The indications, alternatives, benefits, risks, and complications of the procedure were explained to the patient. Written informed consent was obtained and placed in the chart. The area of interest was examined sonographically and a site was chosen for ultrasound guided percutaneous aspiration. The skin was prepared and draped in the usual fashion, and anesthetized with 1% lidocaine infiltrated from the skin down to the lesion. Under continuous ultrasound guidance, Yueh needle was advanced under continuous ultrasound guidance. With the needle within the fluid collection, the inner needle was removed and the other sheath was used for aspiration of 40 cc of whitish fluid which was sent for multiple or labs.. A bandage was applied to the area of access at completion of the study. COMPARISON: Ultrasound left breast dated 03/06/2024, 02/19/2024. FINDINGS: Location(s) of lesion(s) sampled: Left breast, 3 o'clock, 5 centimeters from nipple Tanner: 5 Wallisian 7 centimeter Yueh. Number of passes: 1 Medications: 1% lidocaine for local anaesthesia. Complications: None. IMPRESSION: Ultrasound-guided left breast fluid collection aspiration. 40 cc of milky white fluid was aspirated and sent for multiple labs. Dictated by: Mikael Thomas M.D. on 03/11/2024 at 12:58 Approved by: Mikael Thomas M.D. on 03/11/2024 at 13:01
[2024-03-10 16:23] LABS: Body Fluid Appearance TURBID; Body Fluid Color PINK
[2024-03-10 16:24] LABS: Body Fluid Clotted? SPECIMEN CLOTTED
== END ==
PROVIDERS: PCP Family Medicine; Referring Provider Surgery; Visit Provider Surgery
DX: N64.89 Other specified disorders of breast (principal)
CPT/HCPCS: 10005; 87070; 87075; 87205; 89051

== ENCOUNTER → 2024-04-09 14:48 | Outpatient (CLI) | payer OTHER, SELFPAY ==
[2024-02-21 12:09] VITALS: BMI 22.1
--- NOTE | 2024-04-09 14:49 | DI.US.S_ITS ---
LIMITED ULTRASOUND OF LEFT BREAST: 04/09/2024 CLINICAL: Follow up evaluation requested from prior study, left breast. Comparison is made to exams dated: 03/06/2024 ultrasound and 02/19/2024 ultrasound - [facility]. Color flow and real-time ultrasound of the left breast 3 o'clock region were performed. Johnston scale images of the real-time examination were reviewed. There is a 3.9 cm x 3.2 cm x 2 cm curvilinear, well circumscribed fluid collection with a smooth internal wall in the left breast at 3 o'clock middle depth. This fluid collection is hypoechoic with a well-defined boundary and homogeneous low, mobile internal echoes. This abnormality is decreased in size, increased in definition, and correlates as palpated. There is associated minimal adjacent edema, decreased vascularity, and mild diffuse skin thickening. 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 Continued surveillance is recommended with follow up ultrasound in 1-2 months, or earlier if symptoms of infection arise. Findings and recommendations were conveyed to the patient at time of exam. This exam was interpreted at Station ID: [id number]. Electronically Signed By: Keren sifuentes/:04/09/2024 15:40:49 letter sent: Followup Recommended Ultrasound BI-RADS: 3 Probably benign
== END ==
LOC: US 14:48
PROVIDERS: PCP Family Medicine; Referring Provider Surgery; Visit Provider Surgery
DX: N64.89 Other specified disorders of breast (principal)
CPT/HCPCS: 76642

== ENCOUNTER → 2024-05-29 14:38 | Outpatient (CLI) | payer OTHER, SELFPAY ==
[2024-02-21 12:09] VITALS: BMI 22.1
--- NOTE | 2024-05-29 14:39 | DI.US.S_ITS ---
LIMITED ULTRASOUND OF LEFT BREAST: 05/29/2024 CLINICAL: Left breast follow up. Comparison is made to exams dated: 04/09/2024 ultrasound, 03/06/2024 ultrasound, and 02/19/2024 ultrasound - [facility]. Color flow and real-time ultrasound of the left breast 3 o'clock region were performed. Johnston scale images of the real-time examination were reviewed. There is a 2 cm x 2.6 cm x 2 cm well defined, lobulated fluid collection with a smooth internal wall in the left breast at 3 o'clock middle depth 1 cm from the nipple. This is homogeneously hypoechoic with low level internal echoes. This abnormality is decreased in size, become two separate collections, and correlates as palpated. Color flow imaging demonstrates that there is no increase in vascularity. This is palpable, but no longer painful to the patient. 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 Clinical follow up if this becomes painful, or if increases in size, could consider aspiration. Screening mammography beginning at age 40 is recommended. Findings and recommendations were conveyed to the patient at time of exam. This exam was interpreted at Station ID: [id number]. Electronically Signed By: Keren sifuentes/:05/29/2024 16:38:59 letter sent: Normal Exam ACR BI-RADS Category 2: Benign
== END ==
LOC: US 14:38
PROVIDERS: PCP Family Medicine; Referring Provider Surgery; Visit Provider Surgery
DX: N61.1 Abscess of the breast and nipple (principal)
CPT/HCPCS: 76642

== ENCOUNTER → 2025-02-09 08:21 | Outpatient (CLI) | payer OTHER, SELFPAY ==
[2024-02-21 12:09] VITALS: BMI 22.1
[2025-02-09 09:08] LABS: Cholesterol 180 mg/dL (140-199); HDL Cholesterol 74 mg/dL (40-60); LDL Cholesterol Calculated 95 mg/dL (<100); Triglycerides 53 mg/dL (35-150)
[2025-02-09 09:25] LABS: Follicle Stimulating Hormone 11.6 mIU/mL; Luteinizing Hormone 4.65 mIU/mL
[2025-02-09 09:40] LABS: Cancer Antigen 125 6.2 U/mL (0-35)
[2025-02-09 09:42] LABS: Testosterone 23.4 ng/dL (5.71-77.0)
[2025-02-10 04:12] LABS: CRP, High Sensitivity 0.67 mg/L (0.00-3.00)
== END ==
PROVIDERS: PCP Family Medicine; Referring Provider Family Medicine; Visit Provider Family Medicine
DX: Z00.01 Encounter for general adult medical examination with abnormal findings (principal); Z13.220 Encounter for screening for lipoid disorders; R10.9 Unspecified abdominal pain; N94.6 Dysmenorrhea, unspecified; Z80.41 Family history of malignant neoplasm of ovary
CPT/HCPCS: 36415; 80061; 82627; 82670; 83001; 83002; 84403; 86140; 86304

== ENCOUNTER → 2025-05-14 07:53 | Outpatient (CLI) | payer OTHER, SELFPAY ==
[2025-02-18 13:40] VITALS: BMI 22.1
[2025-05-14 09:19] LABS: Vitamin D 25 Hydroxy (D3) 34.6 ng/mL (30.0-100.0)
[2025-05-14 09:26] LABS: Free T3, Triiodothyronine Free 3.71 pg/mL (2.77-5.27)
[2025-05-14 09:40] LABS: TSH w/ Reflex to FT4 2.59 uIU/mL (0.47-4.68)
[2025-05-14 09:41] LABS: Ferritin 10 ng/mL (6-137)
== END ==
PROVIDERS: PCP Family Medicine; Referring Provider Family Medicine; Visit Provider Family Medicine
DX: E03.9 Hypothyroidism, unspecified (principal); R53.83 Other fatigue; N95.1 Menopausal and female climacteric states
CPT/HCPCS: 36415; 82306; 82397; 82728; 84443; 84481

== ENCOUNTER → 2025-06-15 11:22 | Outpatient (CLI) | payer OTHER, SELFPAY ==
[2025-02-18 13:40] VITALS: BMI 22.1
[2025-06-15 14:27] LABS: Follicle Stimulating Hormone 3.88 mIU/mL; Progesterone, Total 3.75 ng/mL
== END ==
PROVIDERS: PCP Family Medicine; Referring Provider Family Medicine; Visit Provider Family Medicine
DX: E34.9 Endocrine disorder, unspecified (principal)
CPT/HCPCS: 36415; 82627; 82670; 83001; 84144; 84403

== ENCOUNTER → 2025-08-06 08:35 | Outpatient (CLI) | payer OTHER, SELFPAY ==
[2025-02-18 13:40] VITALS: BMI 22.1
[2025-08-06 08:55] LABS: Add Manual Diff / Slide Review NO; Hematocrit 40.8 % (36-46); Hemoglobin 13.9 g/dL (12.0-16.0); Lymphocytes Absolute Auto 1800 /uL (1100-4500); Mean Corpuscular HGB Conc 33.9 % (30-36); Mean Corpuscular Hemoglobin 31.2 PG (26-34); Mean Corpuscular Volume 91.8 fL (80-100); Platelet Count 195 X10^3/uL (150-400)
[2025-08-06 09:25] LABS: HEMOLYSIS < 15 (0-50); Iron 99 ug/dL (37-170)
[2025-08-06 09:36] LABS: Percent Iron Saturation 35 % (15-50); Total Iron Binding Capacity 282 ug/dL (265-497); Transferrin 249 mg/dL (206-381)
[2025-08-06 09:41] LABS: Ferritin 22 ng/mL (6-137)
== END ==
PROVIDERS: PCP Family Medicine; Referring Provider Family Medicine; Visit Provider Family Medicine
DX: R53.82 Chronic fatigue, unspecified (principal); R42 Dizziness and giddiness
CPT/HCPCS: 36415; 82728; 83540; 83550; 85025

== ENCOUNTER → 2025-08-17 09:40 | Outpatient (CLI) | payer OTHER, SELFPAY ==
[2025-02-18 13:40] VITALS: BMI 22.1
== END ==
PROVIDERS: PCP Family Medicine; Visit Provider Nurse Practitioner Family
DX: R30.0 Dysuria (principal); N94.9 Unspecified condition associated with female genital organs and menstrual cycle; N89.8 Other specified noninflammatory disorders of vagina
CPT/HCPCS: 87086; 87210

== ENCOUNTER → 2025-08-17 13:44 | Outpatient (CLI) | payer OTHER, SELFPAY ==
[2025-02-18 13:40] VITALS: BMI 22.1
[2025-08-17 16:43] LABS: Urine N gonorrhoeae NOT DETECTED
[2025-08-17 16:47] LABS: Urine Chlamydia NOT DETECTED
[2025-08-18 16:00] LABS: Hepatitis B Surface Antigen NEGATIVE s/c (NEGATIVE)
[2025-08-18 16:17] LABS: HIV 1 & 2 Ab/Ag 4th Gen Combo NEGATIVE (NEGATIVE); Hep C Virus Ab w/Reflex Quant NEGATIVE s/c (NEGATIVE)
== END ==
PROVIDERS: PCP Family Medicine; Referring Provider Nurse Practitioner Family; Visit Provider Nurse Practitioner Family
DX: N89.8 Other specified noninflammatory disorders of vagina (principal)
CPT/HCPCS: 36415; 86592; 86803; 87340; 87389; 87491; 87529; 87591